=== PATIENT | female | born 1985 | race Caucasian/White ===

== ENCOUNTER 2019-03-24 13:30 | Inpatient (IN) | payer MEDICAID, OTHER ==
[~2019-03-24] VITALS: Ht 157.5 cm; Wt 77.9 kg
[2019-03-24] MEDS ORDERED: ONDANSETRON 4 MG INJ IV STA ×3 (14:06→18:36)
[2019-03-24] MEDS ORDERED: SOD CHLORIDE 0.9% 500 ML IV STA (14:06)
[2019-03-24] MEDS ORDERED: morphine 2 MG INJ IV STA ×2 (14:06→15:40)
--- NOTE | 2019-03-24 14:22 | ERD ---
ER Documentation Chief Complaint Chief Complaint abdominal pain, vomitting started today HPI This is a 33-year-old female with a nonsignificant past medical history presents ED with complaints of left lower quadrant abdominal pain that started around 8 AM this morning. Patient describes pain as a twisting sensation and rates it at a 10 out of 10 pain. Patient states the pain radiates to the left low back. Patient admits to nausea vomiting and diarrhea. Admits to decreased appetite. Admits to having similar pain in the past and was worked up in another ER and was told that there was nothing wrong. Denies fevers, chills, chest pain, shortness breath, trouble breathing, dysuria, hematuria. Last menstrual period was 02-26-19. Patient is G0, P0. Did not eat anything today. ROS All systems reviewed and are negative except as per history of present illness. Medications Home Meds No Active Prescriptions or Reported Meds Allergies Allergies: Coded Allergies: No Known Allergy (Unverified , 03/24/19) PMhx/Soc Medical and Surgical Hx: pt denies Medical Hx, pt denies Surgical Hx Hx Alcohol Use: No Hx Substance Use: No Hx Tobacco Use: No Smoking Status: Never smoker FmHx Family History: No diabetes Physical Exam Vitals Vital Signs Date Temp Pulse Resp B/P (MAP) Pulse Ox O2 O2 Flow FiO2 Time Delivery Rate 03/24/19 100.3 70 18 162/73 100 Room Air 15:56 (102) 03/24/19 98.3 74 20 141/90 100 13:35 (107) Physical Exam Physical Exam Vitals signs: Reviewed by me. General: Well developed, well nourished, in no acute distress. Patient is awake and alert. Head: Normocephalic, atraumatic. Eyes: Normal conjunctiva, Pupils PERRLA, EOM intact grossly ENT: Pharynx is clear, Moist mucous membranes, external ears, nose and mouth normal Neck: Supple, no masses, lymphadenopathy or JVD Respiratory: Clear to auscultation bilaterally with no wheezing, rhonchi, rales, no distress Cardiovascular: RRR, no murmurs, rubs, or gallops Abdominal: Soft, nondistended, no peritoneal signs, no rigidity, no surgical ab domen, bowel sounds present all 4 quadrants, mild tenderness palpation in the left lower quadrant and suprapubic region, nontender to palpation in all other areas, McBurney's point nontender, Dougherty sign negative MSK: No edema Back: No midline tenderness. No flank tenderness Neurologic: Alert and oriented, moving all extremities, normal speech, no focal weakness, no cerebellar signs. Normal mentation Skin: warm and dry, No rash Psych: Normal mood Result Diagram: 03/24/19 1430 03/24/19 1429 Results 24 hrs Laboratory Tests Test 03/24/19 14:24 03/24/19 14:29 03/24/19 14:30 03/24/19 14:32 Urine Color YELLOW Urine Clarity CLEAR Urine pH 5.0 Urine Specific 1.031 [place] Urine Ketones 2+ mg/dL Urine Nitrite NEGATIVE mg/dL Urine Bilirubin NEGATIVE mg/dL Urine NEGATIVE mg/dL Urobilinogen Urine Leukocyte NEGATIVE Hank/ul Esterase Urine Microscopic 5 /HPF RBC Urine Microscopic 4 /HPF WBC Urine Bacteria FEW /HPF Urine Hemoglobin 1+ mg/dL Urine Glucose 3+ mg/dL Urine Total 2+ mg/dl Protein Iron Level 32 ug/dl Total Iron 513 ug/dl Binding Capacity Percent Iron 6 % SAT Saturation Free Thyroxine 0.95 ng/dl Sodium Level 139 mmol/L Potassium Level 4.2 mmol/L Chloride Level 102 mmol/L Carbon Dioxide 19 mmol/L Level Anion Gap 18 Blood Urea 8 mg/dl Nitrogen Creatinine 0.52 mg/dl Est Glomerular > 60 mL/min Filtrat Rate mL/min Glucose Level 320 mg/dl Calcium Level 9.3 mg/dl Total Bilirubin 0.4 mg/dl Direct Bilirubin 0.00 mg/dl Indirect 0.4 mg/dl Bilirubin Aspartate Amino 44 IU/L Transf (AST/SGOT) Alanine 44 IU/L Aminotransferase (ALT/SGPT) Alkaline 100 IU/L Phosphatase Total Protein 8.9 g/dl Albumin 4.9 g/dl Globulin 4.00 g/dl Albumin/Globulin 1.22 Ratio Lipase 108 U/L White Blood Count 11.4 10^3/ul Red Blood Count 5.68 10^6/ul Hemoglobin 9.1 g/dl Hematocrit 34.5 % Mean Corpuscular 60.7 fl Volume Mean Corpuscular 16.0 pg Hemoglobin Mean Corpuscular 26.4 g/dl Hemoglobin Concen t Red Cell 21.5 % Distribution Width Platelet Count 309 10^3/UL Mean Platelet fl Volume Immature 0.300 % Granulocytes % Neutrophils % 92.0 % Lymphocytes % 4.8 % Monocytes % 2.6 % Eosinophils % 0.0 % Basophils % 0.3 % Nucleated Red 0.0 /100WBC Blood Cells % Immature 0.040 10^3/ul Granulocytes # Neutrophils # 10.5 10^3/ul Lymphocytes # 0.6 10^3/ul Monocytes # 0.3 10^3/ul Eosinophils # 0.0 10^3/ul Basophils # 0.0 10^3/ul Nucleated Red 0.0 10^3/ul Blood Cells # Hemoglobin A1c 11.5 % POC Beta HCG, NEGATIVE Qualitative Current Medications Medications Dose Sig/Carmen Start Time Status Last (Trade) Ordered Route PRN Stop Time Admin Dose Reason Admin Sodium 500 ml @ Q1H STAT 03/24/19 DC 03/24/19 Chloride 500 mls/hr IV 14:06 14:27 03/24/19 15:05 Morphine 4 mg ONCE STAT 03/24/19 DC 03/24/19 Sulfate IV 14:06 14:28 (morphine) 03/24/19 14:08 Ondansetron 4 mg ONCE STAT 03/24/19 DC 03/24/19 HCl (Zofran IV 14:06 14:27 Inj) 03/24/19 14:08 Morphine 4 mg ONCE STAT 03/24/19 DC 03/24/19 Sulfate IV 15:40 15:51 (morphine) 03/24/19 15:41 Potassium 1,000 ml @ Q0M IV 03/24/19 DC Chloride/Sodi 0 mls/hr 16:57 um Chloride 03/24/19 18:04 Potassium 1,000 ml @ Q0M IV 03/24/19 DC Chloride/Dext 0 mls/hr 16:57 mary beth/ Sod Cl 03/24/19 18:05 Potassium 1,000 ml @ Q0M IV 03/24/19 DC Chloride/Sodi 0 mls/hr 16:57 um Chloride 03/24/19 18:04 Potassium 1,000 ml @ Q0M IV 03/24/19 DC Chloride/Dext 0 mls/hr 16:57 mary beth/ Sod Cl 03/24/19 18:05 Sodium 1,000 ml @ Q0M IV 03/24/19 Chloride 0 mls/hr 16:57 1,000 ml @ Q0M IV 03/24/19 DC Dextrose/Sodi 0 mls/hr 16:57 um Chloride 03/24/19 18:05 Insulin 101 ml @ ER DKA 03/24/19 DC Human 7.68 mls/hr PROTOCOL IV 17:00 Regular 100 03/24/19 18:07 unit/ Sodium Chloride Lactated 760 ml @ ONCE ONCE 03/24/19 DC 03/24/19 Ringer's 760 mls/hr IV 17:00 18:00 03/24/19 17:59 HYPOGLYCEM 03/24/19 Miscellaneous HYPOGLYCEMIA PROTOCOL PRN 17:00 TREATMENT XX Information .HYPOGLYCEMIA (* PROTOCOL Miscellaneous Pharmacy Order) Dextrose 50 ml Q15M PRN 03/24/19 (D50w IV 17:00 Syringe) .DECREASED GLUCOSE Dextrose 25 ml Q15M PRN 03/24/19 (D50w IV 17:00 Syringe) .DECREASED GLUCOSE IV Flush 3 ml PER 03/24/19 (NS 3 ml) PROTOCOL IV 17:00 Ondansetron 4 mg Q6H PRN 03/24/19 HCl (Zofran IV 17:00 Inj) NAUSEA/VOMITI NG 650 mg Q6H PRN 03/24/19 Acetaminophen PO .PAIN 1-3 17:00 (Tylenol OR TEMP Tab) 1 tab Q6H PRN 03/24/19 Acetaminophen PO .MOD PAIN 17:00 / 4-6 Hydrocodone Bitart ([place] (5/325)) Morphine 2 mg Q4H PRN 03/24/19 Sulfate IV .SEVERE 17:00 (morphine) PAIN 7-10 Docusate 100 mg Q12H PRN 03/24/19 Sodium PO 17:00 (Colace) .CONSTIPATION Magnesium 30 ml DAILY PRN 03/24/19 Hydroxide PO 17:00 (Milk Of Mag) .CONSTIPATION Heparin 5,000 unit Q12 SC 03/24/19 Sodium 21:00 (Porcine) (Heparin (5000 Units/1ml)) Lorazepam 0.5 mg Q6H PRN 03/24/19 (Ativan) IV ANXIETY 17:00 Sodium 1,000 ml @ Q10H IV 03/24/19 Chloride 100 mls/hr 16:57 Albuterol/ 3 ml Q4H RESP 03/24/19 Ipratropium THERAPY PRN 17:00 (Duoneb) HHN SHORTNESS OF BREATH Piperacillin 100 ml @ Q6 IVPB 03/24/19 Sod/ 200 mls/hr 18:00 Tazobactam Sod Hydralazine 10 mg Q6H PRN 03/24/19 HCl IV ELEVATED 17:00 (Apresoline) BLOOD PRESSURE 1 tab Q5M PRN 03/24/19 Nitroglycerin SL ANGINA 17:00 (Nitroglyceri n (Sl Tab) 0.4 Mg) 40 mg DAILY@06 03/25/19 Pantoprazole PO 06:00 (Protonix Tab) Dextrose 50 ml Q15M PRN 03/24/19 (D50w IV For BS 50 17:00 Syringe) or less Dextrose 25 ml Q15M PRN 03/24/19 (D50w IV BS 17:00 Syringe) between 50-70 Diagnostic 1 ea Q1H XX 03/24/19 Test (Pha) 17:00 (Accu-Chek) HYPOGLYCEM 03/24/19 Miscellaneous HYPOGLYCEMIA PROTOCOL PRN 17:00 TREATMENT XX Information Hypoglycemia (* (BS < 70) Miscellaneous Pharmacy Order) Potassium 1,000 ml @ Q0M IV 03/24/19 Chloride/Sodi 0 mls/hr 16:57 um Chloride Potassium 1,000 ml @ Q0M IV 03/24/19 Chloride/Dext 0 mls/hr 16:57 mary beth/ Sod Cl Potassium 1,000 ml @ Q0M IV 03/24/19 Chloride/Sodi 0 mls/hr 16:57 um Chloride Potassium 1,000 ml @ Q0M IV 03/24/19 Chloride/Dext 0 mls/hr 16:57 mary beth/ Sod Cl Sodium 1,000 ml @ Q0M IV 03/24/19 Chloride 0 mls/hr 16:57 1,000 ml @ Q0M IV 03/24/19 Dextrose/Sodi 0 mls/hr 16:57 um Chloride Insulin 101 ml @ DKA 03/24/19 Human 7.68 mls/hr PROTOCOL IV 17:00 Regular 100 unit/ Sodium Chloride Please ONCE ONCE 03/24/19 DC Miscellaneous discontinue XX 17:00 ... 03/24/19 18:08 Information (* Miscellaneous Pharmacy Order) 1 mg ONCE STAT 03/24/19 DC 03/24/19 Hydromorphone IV 17:45 18:02 HCl 03/24/19 17:46 (Dilaudid) Ondansetron 4 mg ONCE STAT 03/24/19 DC 03/24/19 HCl (Zofran IV 17:45 17:58 Inj) 03/24/19 17:46 1 mg ONCE STAT 03/24/19 DC Hydromorphone IV 18:36 HCl 03/24/19 18:37 (Dilaudid) Ondansetron 4 mg ONCE STAT 03/24/19 DC HCl (Zofran IV 18:36 Inj) 03/24/19 18:37 Procedures/MDM imaging: [place] [address] Radiology Main Line: [phone] DIAGNOSTIC IMAGING REPORT Patient: SAVITA PRASAD : 1985 Age: 33 Sex: F MR #: [id number] DOS: 03/24/19 1406 Ordering MD: SAÚL SINHA PA-C Location: [facility] Room/Bed: PROCEDURE: CT Abdomen and Pelvis without contrast CLINICAL INDICATION: Left lower quadrant abdominal pain TECHNIQUE: Transaxial images were obtained through the abdomen and pelvis on a multi-slice scanner without the intravenous contrast administration. No oral contrast had previously been given. Sagittal and coronal re-formations were subsequently reconstructed. One or more of the following dose reduction techniques were used: - Automated exposure control. - Adjustment of the mA and/or kV according to patient size. - Use of iterative reconstruction technique. DICOM images are available. Radiation dose: CTDIvol = 10.80 mGy; DLP = 642.51 mGy-cm. COMPARISON: No prior studies are available for comparison. FINDINGS: Lung bases: A 1 mm calcified granuloma is seen in the left lower lobe. Liver: The liver is enlarged with the sagittal diameter of the right lobe measuring 19.0 cm. No focal lesion is evident. Gallbladder: The wall is not thickened. No radiopaque stones are identified. Bile ducts: The intra and extrahepatic bile ducts are normal in caliber. Pancreas: Appears normal with no mass or inflammation evident. Spleen: Normal in size with no focal lesion. Adrenals: A 1.3 cm left adrenal nodule is evident that measures 28 HU. The right adrenal gland appears normal. Kidneys, ureters and bladder: The kidneys are normal in size and there is no mass, pathological calcification, or hydronephrosis evident. There is no perinephric stranding. The ureters are normal in caliber and no ureteroliths are identified. The bladder appears unremarkable. Reproductive organs: The uterus is anteverted and deviates minimally to the right of midline. There is a complex largely cystic lesion seen in the right pelvic region measuring 11.2 x 7.3 x 7.0 cm containing multiple septations. There is no significant inflammatory change in the adjacent fat. Stomach and bowel: The stomach appears unremarkable. There is a moderate stool burden within the cecum and ascending colon without evidence of bowel obstruction or inflammation. Appendix: The proximal vermiform appendix appears unremarkable while distally, the vermiform appendix appears to be coming imbedded within the complex largely cystic right pelvic mass. Peritoneum: There is no significant amount of free intraperitoneal fluid and no free air is identified. A few shoddy retroperitoneal nodes are evident up to 9 mm in short diameter. Aorta: Normal in caliber with no aneurysmal dilatation. IVC: Unremarkable. Lymph nodes: Shoddy retroperitoneal nodes are evident with the largest measuring 9 mm in short diameter. An 8 mm in short diameter left inguinal node is evident. Osseous structures: A lobulated lucent lesion with an abrupt zone of transition is seen within the left superior medial acetabulum measuring 3.0 x 2.9 x 1.0 cm. Mild degenerative enthesopathy of the inferior thoracic and lumbar spine is noted. IMPRESSION: 1. Within the right intraperitoneal pelvis, partially enveloping the uterus and crossing the midline to the left posterior to the uterus is a complex largely cystic mass measuring 11.2 x 7.3 x 7.0 cm and containing multiple septations. There is no significant inflammatory change in the adjacent fat. The distal vermiform appendix appears to be enveloped within this structure. Differential possibilities include a cystic ovarian neoplasm, pseudomyxoma peritonei related to appendiceal pathology, cystic lymphangioma, and tubal ovarian abscess is less likely due to lack of obvious inflammation. Correlation with pelvic sonography may add useful information. 2. There is no evidence of bowel obstruction or inflammation. 3. There is no free intraperitoneal fluid or free intraperitoneal air. 4. There are a few shoddy retroperitoneal nodes up to 9 mm in short diameter and an 8 mm in short diameter left inguinal node is evident. 5. 1.3 cm left adrenal nodule which is indeterminate as it measures 28 HU in density. 6. Hepatomegaly with no focal lesion. 7. A 1 mm calcified granuloma is seen in the left lower lobe 8. Nonaggressive lobulated lucency well-marginated with an abrupt zone of transition is seen within the left superior medial acetabulum. This could repres ent a simple unicameral bone cyst, an aneurysmal bone cyst. Findings of multiloculated largely cystic lesion in the intraperitoneal pelvis, shoddy retroperitoneal adenopathy, small left adrenal nodule, and lucent lesion in the left acetabulum were telephoned by Cricket Milligan MD to Darlene Sinha Pa-C on 03/24/2019 at 1600 hours. Physician Leonela Date Time Electronically viewed and signed by Physician Leonela on 03/24/2019 16:06 RH/ CC: SAÚL SINHA PA-C [id number] [place] [address] Radiology Main Line: [phone] DIAGNOSTIC IMAGING REPORT Patient: SAVITA PRASAD : 1985 Age: 33 Sex: F MR #: [id number] DOS: 03/24/19 0000 Ordering MD: SAÚL SINHA PA-C Location: [facility] Room/Bed: PROCEDURE: US Pelvis CLINICAL INDICATION: Pelvic pain. TECHNIQUE: Transabdominal sonographic evaluation of the pelvis was performed. COMPARISON: CT abdomen and pelvis performed on the same day. FINDINGS: Uterus is anteverted and measures 8.1 x 4.2 x 6 cm. Endometrium measures 8 mm in thickness. No uterine masses are seen. There is a complex multicyst right adnexal mass measuring approximately 9 x 6.4 x 6.5 cm. Normal appearing right ovary was not seen. Left ovary measures 3.9 x 2.9 x 2.4 cm and unremarkable. There is no free pelvic fluid. IMPRESSION: 1. Complex multicystic right adnexal mass without visible normal appearing right ovary. Finding could be of ovarian origin. Recommend further evaluation with contrast enhanced pelvic MRI. 2. Unremarkable uterus and left ovary. 3. No free pelvic fluid. RPTAT:AAEE Physician Yadira Date Time Electronically viewed and signed by Physician Yadira on 03/24/2019 16:29 RM/ CC: SAÚL SINHA PA-C [id number] LAB INTERPRETATION: CBC remarkable for an elevated white count of 11.4, hemoglobin 9.1, hematocrit 34.5, elevated neutrophil percentage 92.0 Chemistry remarkable for a glucose 320, anion gap elevated 18, carbon dioxide 19 Liver function test shows no evidence of acute biliary or hepatic dysfunction Lipase shows no evidence of acute pancreatitis Urinalysis remarkable for positive ketones, glucose and urine, A1C 11.5 ER COURSE: The patient was given IV normal saline, Zofran, morphine The medication was well tolerated and the patient reports improvement in symptoms. The patient was stable throughout ED course. I kept the patient and/or family informed of laboratory and diagnostic imaging results throughout the emergency room course. The patient was promptly evaluated and a treatment plan was devised based on H&P and other data. This plan was discussed with the patient who agreed and had no further questions or concerns prior to discharge. MEDICAL DECISION MAKING: This is a 33-year-old female presents ED with left lower quadrant abdominal pain that started around 8 AM this morning. Blood work is remarkable for an elevated glucose of 320, anion gap elevated and dioxide decreased. Patient has no history of diabetes. This is likely diabetic ketoacidosis. Patient also does have an elevated white count. CT the abdomen and pelvis shows a large cystic mass which could be cystic ovarian neoplasm, pseudomyxoma or appendiceal pathology. US shows Complex multicystic right adnexal mass without visible normal appearing right ovary. Finding could be of ovarian origin. Recommend further evaluation with contrast enhanced pelvic MRI. Discussed case with my overseeing physician Dr. Cain who agrees with plan of admitting patient to hospital. Dr. Cain will be facilitating admission of patient into hospital. Disclaimer: Inadvertent spelling and grammatical errors are likely due to E HR/dictation software use and do not reflect on the overall quality of patient care. Also, please note that the electronic time recorded on this note does not necessarily reflect the actual time of the patient encounter. Please note that this patient had initially been seen and evaluated by the brannon vergara assistant activities director. I went to the bedside to perform a focused physical exam. The patient was in a significant amount of abdominal discomfort. My physical exam did not show any evidence of peritoneal signs but the patient did have significant tenderness more prominent in the right lower quadrant. I indicated to both the patient and her family who is at bedside that there was a large complex right adnexal mass. I reviewed this on the radiographic imaging be both the CT of the pelvis. It was measuring 11.2 x 7.3 x 7.0 cm. I consulted the CONTRACT ADMIN and they will be evaluated on the case. I have also ordered a pelvic MRI for further evaluation into the complex mass. The patient required IV Dilaudid. The patient has no history of diabetes. The patient's blood glucose was elevated at 320 with an anion gap and a low bicarb. The patient stated she had not consumed any oral intake for over 24 hours. Therefore this was concerning for new onset diabetic ketoacidosis as I obtained a hemoglobin A1c which was elevated at 11.5. DKA protocol was started. The patient will be admitted to the hospitalist Dr. Garcia. The patient will be going to the intensive care unit in serious condition with an anticipated stay of greater than 2 midnights. Critical Care: Time: 45 minutes Treatments/Evaluations: Close monitoring and treatment of unstable vital signs, cardiorespiratory, and neurologic status, while maintaining tight balance of fluid, respiratory, and cardiac interventions. Time does not include performing any of the above billable procedures. Departure Diagnosis: Primary Impression: DKA (diabetic ketoacidoses) Diabetes mellitus type: other specified (including DEX) Diabetes mellitus complication detail: without coma Qualified Codes: E13.10 - Other specified diabetes mellitus with ketoacidosis without coma Additional Impressions: Leukocytosis Leukocytosis type: unspecified Qualified Codes: D72.829 - Elevated white blood cell count, unspecified Anemia Anemia type: unspecified type Qualified Codes: D64.9 - Anemia, unspecified Abdominal pain Abdominal location: lower abdomen, unspecified Qualified Codes: R10.30 - Lower abdominal pain, unspecified Nausea vomiting and diarrhea Pelvic mass Condition: Serious FOSTER, SAÚL PA-C Mar 24, 2019 14:22 JUAN JOSE PRASAD MD Mar 24, 2019 18:43
[2019-03-24] MEDS ORDERED: DEXTROSE 10%/0.45% NACL 1,000 ML IV SCH ×2 (16:57)
[2019-03-24] MEDS ORDERED: SOD CHLORIDE 0.9% 1,000 ML IV SCH ×3 (16:57)
[2019-03-24] MEDS ORDERED: D10/0.45% NACL + KCL 40 MEQ 1,000 ML IV SCH ×2 (16:57)
[2019-03-24] MEDS ORDERED: D10/0.45% NACL + KCL 30 MEQ 1,000 ML IV SCH ×2 (16:57)
[2019-03-24] MEDS ORDERED: NS + KCL 40 MEQ 1,000 ML IV SCH ×2 (16:57)
[2019-03-24] MEDS ORDERED: NS + KCL 30 MEQ 1,000 ML IV SCH ×2 (16:57)
[2019-03-24] MEDS ORDERED: NACL 0.9% 3 ML SYG IV SCH (17:00)
[2019-03-24] MEDS ORDERED: ONDANSETRON 4 MG INJ IV PRN (17:00)
[2019-03-24] MEDS ORDERED: hydrALAzine 20 MG INJ IV PRN (17:00)
[2019-03-24] MEDS ORDERED: MAGNESIUM HYDROXIDE 30ML CUP PO PRN (17:00)
[2019-03-24] MEDS ORDERED: NITROGLYCERIN (SL) 0.4 MG TAB SL PRN (17:00)
[2019-03-24] MEDS ORDERED: DEXTROSE 50% 50 ML SYRINGE IV PRN ×4 (17:00)
[2019-03-24] MEDS ORDERED: DOCUSATE SODIUM 100 MG CAP PO PRN (17:00)
[2019-03-24] MEDS ORDERED: LACTATED RINGER'S 760 ML IV ONE (17:00)
[2019-03-24] MEDS ORDERED: HYDROCODONE/APAP (5/325) TAB PO PRN (17:00)
[2019-03-24] MEDS ORDERED: morphine 2 MG INJ IV PRN (17:00)
[2019-03-24] MEDS ORDERED: INSULIN REGULAR, HUMAN 100 UNIT in SOD CHLORIDE 0.9% 100 ML IV SCH ×4 (17:00)
[2019-03-24] MEDS ORDERED: LORAZEPAM 2 MG INJ IV PRN (17:00)
[2019-03-24] MEDS ORDERED: ALBUTEROL/IPRATROPIUM (NEB) 3 ML AMP HHN PRN (17:00)
[2019-03-24] MEDS: ACCU-CHEK XX SCH ×4 (17:45→23:42)
[2019-03-24] MEDS ORDERED: HYDROmorphONE 1 MG/ML SYG IV STA ×2 (17:45→18:36)
[2019-03-24] MEDS: PIPER-TAZO 3.375 GM IV (PMX) 100 ML IVPB SCH (19:03)
--- NOTE | 2019-03-24 21:10 | HP ---
DATE OF ADMISSION: 03/24/2019 IDENTIFICATION: This is a 33-year-old female. CHIEF COMPLAINT: Abdominal pain and vomiting. HISTORY OF PRESENT ILLNESS: A 33-year-old female with apparently no significant past medical history who started having left lower quadrant pain. She said the symptoms began early this morning. She d escribed a 10/10 pain, sort of a twisting sensation. Apparently, she has never had this pain before. The pain apparently radiated to her lower back. She also had some nausea and vomiting symptoms, no nbilious, nonbloody, and some mild loose stools. She denied any chest pain, shortness of breath, no fevers or chills. No dysuria. When she came in today, she was found with elevated blood sugars in t he 300 range and her anion gap was slightly elevated with signs of mild DKA and she is presently on D KA protocol, getting IV fluids and waiting for IV insulin. However, she also had a CT scan of abdome n and pelvis performed today in the ER that showed the right intraperitoneal pelvis partially indelvi ng the uterus, and crossing the midline to the left posterior to the uterus is a complex large cystic mass measuring 11 x 7 x 7 cm containing multiple septations, cannot rule out cystic ovarian neoplasm versus a pseudomyxoma peritonei versus cystic lymphangioma tubo-ovarian abscess, less likely due to lack of information. There was a pelvic ultrasound performed that showed complex multicystic right a dnexal mass without visible normal-appearing right ovary. A call has been made out for the [employer] do ctor to come evaluate the patient. The patient denies any prior history of any diabetes. Per record s, her last menstrual period was 02/26/2019. The patient stated that she took 2 Tylenol and ibuprofe n at home which provided. The patient stated that she took 2 Tylenol and ibuprofen at home, which pr ovided only minimal relief from symptoms. She also has received some opioid medication in the ER tod ay, which helped relieved her symptoms. PAST MEDICAL HISTORY: As stated above. ALLERGIES: NO KNOWN DRUG ALLERGIES. HOME MEDICATIONS: None. PAST SURGICAL HISTORY: None. SOCIAL HISTORY: Negative for smoking or drinking or IV drug abuse. FAMILY HISTORY: Mother has hypertension. PHYSICAL EXAMINATION: VITAL SIGNS: T-max 100.3, pulse 70 to 74, respirations 18, blood pressure 141 to 162 systolic over 9 0 to 70 diastolic. Satting 100% on room air. GENERAL: The patient is lying in bed, answering questions appropriately. Family at the bedside. HEENT: Pupils equal, round, and reactive to light. Extraocular muscles intact. NECK: Supple, no thyromegaly. LUNGS: Clear to auscultation bilaterally. CARDIOVASCULAR: S1, S2 heard. No rubs or gallops. ABDOMEN: Mild tenderness to palpation, left lower quadrant area. Otherwise, no rebound or guarding. MUSCULOSKELETAL: No lower extremity edema bilaterally. NEUROLOGIC: No focal deficits. LABORATORY DATA: WBC 11.4, hemoglobin 9.1, hematocrit 34.5, platelets of 309. Again, the basic meta bolic panel is normal except CO2 is a little low at 19, anion gap is 18, and the glucose is 320. LFT s are normal. Beta hCG test is negative. UA shows 2+ ketones, negative nitrites, negative leukocyte esterase. DIAGNOSTIC DATA: We mentioned the CT scan of the abdomen and pelvis findings and the pelvic ultrasou nd findings. Chest x-ray showed no focal consolidations. ASSESSMENT AND PLAN: A 33-year-old female coming in with lower abdominal pain as well as signs of di abetic ketoacidosis. 1. Elevated blood sugars. Again, she has signs of diabetic ketoacidosis. Her A1c came back at 11.5 . Again, she has no known prior history of diabetes. So, admit the patient to ICU, put her on DKA p rotocol including aggressive IV fluid hydration, IV insulin, replete electrolytes as needed. Check T SH, A1c, and lipid panel. Consider asthma educator consult and/or endocrinology consult. 2. Abdominal pain. Again, given the findings of the CT scan of abdomen and pelvis, we will order a pelvic MRI to further assess this large cystic mass at 11 x 7 x 7 cm with multiple septations. Follo w up recommendations from [employer] team. Continue IV fluids and pain control medications as well. 3. Gastrointestinal prophylaxis with PPI. 4. Deep venous thrombosis prophylaxis, heparin subcutaneously. Dictated By: JOE SINGH Conf#: [id number] DID#: [id number]
[2019-03-24 23:02] VITALS: BP 131/64; PULSE 73; PULSE 86; RESP 16
[2019-03-24] MEDS: HEPARIN 5,000 UNIT/1 ML VIAL SC SCH (23:42)
[2019-03-25] VITALS (28 sets, daily range): BP systolic 92–199; BP diastolic 52–168; PULSE 68–97; RESP 10–22; Ht 157.5 cm; Wt 77.9 kg
[2019-03-25] MEDS: ACCU-CHEK XX SCH ×10 (01:00→09:00)
[2019-03-25] MEDS: PIPER-TAZO 3.375 GM IV (PMX) 100 ML IVPB SCH ×5 (01:27→23:27)
[2019-03-25] MEDS ORDERED: INSULIN GLARGINE [LANTus] (100 UNITS/ML) SYG SC ONE ×2 (04:00→11:00)
--- NOTE | 2019-03-25 04:41 | CONS ---
Assessment/Plan Assessment/Plan Hospital Course (Demo Recall) lower abdominal pain Complex adnexal mass concerning for ovarian torsion Problems: (1) DKA (diabetic ketoacidoses) Status: Acute Qualifiers: Qualified Codes: E13.10 - Other specified diabetes mellitus with ketoacidosis without coma (2) Pelvic mass Status: Acute (3) Abdominal pain Status: Acute Qualifiers: Qualified Codes: R10.30 - Lower abdominal pain, unspecified (4) Nausea vomiting and diarrhea Status: Acute Assessment/Plan (Daily) Discussed with the patient regarding urgent surgery. Discussed regarding diagnostic laparoscopy possible laparoscopic unilateral ovarian cystectomy possible unilateral salpingo-oophorectomy, possible biopsy and possible any indicated procedure possible open possible blood transfusion. I discussed to the patient due to concern for ovarian torsion and abdominal pain the surgery is being done however the pathology of the cyst is unclear. I discussed that the final pathology will be available after the procedure. And depends on final pathology she may need additional procedures or surgeries in case of any abnormality in the final pathology. Patient asked to blood transfusion in case of emergency. Risk and benefit of procedure including risk of infection, bleeding, damage to surrounding structures including bowel and bladder and risk of anesthesia, risk of blood transfusion including but not limited to blood borne infection including HIV, hepatitis B and C and transfusion reaction discussed with patient in detail informed consent was obtained Patient understands that there is surgery may involve losing one ovary or tube. She does not desire any fertility. She understands possibility of conversion to the procedure to open. She was consented for diagnostic laparoscopy possible laparoscopic unilateral cystectomy possible unilateral salpingo-oophorectomy possible open possible blood transfusion possible biopsy and any indicated procedure. All questions were answered to patient's best satisfaction. Patient verbalized understanding OR team was notified Management of diabetes by primary team and anesthesia Per hospitalist diabetes ketoacidosis currently improved. . Consultation Date/Type/Reason Admit Date/Time Mar 24, 2019 at 17:13 Date of Consultation: Mar 25, 2019 Type of Consult COOLER TENDER consultation Reason for Consultation Concern for possible ovarian torsion Requesting Provider: Gayla Date/Time of Note DATE: 03/25/19 TIME: 04:27 Hx of Present Illness I was consulted for COOLER TENDER evaluation for this patient that had been currently admitted to ICU for lower abdominal pain and she was initially noted to have DKA. Patient apparently complained of abdominal pain and had a pelvic ultrasound and MRI that was concerning for possible ovarian torsion. Attended to the patient bedside. Patient currently appears comfortable. Reports her symptoms are started yesterday with nausea bloody diarrhea as well as lower abdominal pain that has been worsened. She presented to the hospital and was noted to be in DKA. Patient denies any known history of diabetes in the past. She states that she was diagnosed with prediabetes and was on metformin for short period of time about 3 months and since she stopped.\Patient is nulliparous. 0 para 0 She does not desire future fertility. Reports cycles lately has been more regular and occasionally have oligomenorrhea. Reports history of irregular cycles in the past and was placed on Depo-Provera shots at age 14 but then subsequently her cycles have been regular. She has currently received pain medication. Pelvic ultrasound showed a large complex right adnexal complex mass concerning for possible ovarian torsion. Constitutional: no complaints, improved Eyes: No no complaints, No pain, No discharge, No redness, No visual change, No other ENT: No no complaints, No bleeding, No pain, No congestion, No discharge, No dysphagia, No sore throat, No other Respiratory: No no complaints, No pain, No cough, No pleuritic pain, No shortness of breath, No sputum, No wheezing, No other Cardiovascular: No no complaints, No chest pain, No edema, No lightheadedness, No orthopenea, No palpitations, No paroxysmal nocturnal dyspnea, No other Gastrointestinal: pain, diarrhea Genitourinary: No no complaints, No bleeding, No dysuria, No discharge, No flank pain, No hematuria, No other Musculoskeletal: No no complaints, No back pain, No bone/joint pain, No neck pain, No restricted range of motion, No swelling, No other Skin: No no complaints, No bruising, No erythema, No laceration, No pruritis, No rash, No skin lesions, No other Neurologic: No no complaints, No confusion, No dizziness, No focal-weakness, No headache, No syncope, No seizure, No other Endocrine: No no complaints, No polyuria, No polydypsia, No dry skin, No temp intolerance, No other Lymphatic: No no complaints, No adenopathy, No tender nodes, No lymphadema, No other Psychological: No no complaints, No nl mood/affect, No anxiety, No confusion, No depression, No suicidal, No other Immunologic: No no complaints, No immunodeficiency, No pruritis, No rhinitis, No urticaria, No other Past Medical History Patient denies any medical problems in the past except prediabetes Home Meds No Active Prescriptions or Reported Meds Medications Current Medications Sodium Chloride 1,000 ml @ 0 mls/hr Q0M IV ; Start 03/24/19 at 16:57 Miscellaneous Information (* Miscellaneous Pharmacy Order) HYPOGLYCEMIA TREATMENT HYPOGLYCEM PROTOCOL PRN XX .HYPOGLYCEMIA PROTOCOL; Start 03/24/19 at 17:00 Dextrose (D50w Syringe) 50 ml Q15M PRN IV .DECREASED GLUCOSE; Start 03/24/19 at 17:00 Dextrose (D50w Syringe) 25 ml Q15M PRN IV .DECREASED GLUCOSE; Start 03/24/19 at 17:00 IV Flush (NS 3 ml) 3 ml PER PROTOCOL IV ; Start 03/24/19 at 17:00 Ondansetron HCl (Zofran Inj) 4 mg Q6H PRN IV NAUSEA/VOMITING Last administered on 03/25/19at 00:38; Admin Dose 4 MG; Start 03/24/19 at 17:00 Acetaminophen (Tylenol Tab) 650 mg Q6H PRN PO .PAIN 1-3 OR TEMP; Start 03/24/19 at 17:00 Acetaminophen/ Hydrocodone Bitart (Artesian (5/325)) 1 tab Q6H PRN PO .MOD PAIN 4-6; Start 03/24/19 at 17:00 Morphine Sulfate (morphine) 2 mg Q4H PRN IV .SEVERE PAIN 7-10 Last administered on 03/25/19at 00:38; Admin Dose 2 MG; Start 03/24/19 at 17:00 Docusate Sodium (Colace) 100 mg Q12H PRN PO .CONSTIPATION; Start 03/24/19 at 17:00 Magnesium Hydroxide (Milk Of Mag) 30 ml DAILY PRN PO .CONSTIPATION; Start 03/24/19 at 17:00 Heparin Sodium (Porcine) (Heparin (5000 Units/1ml)) 5,000 unit Q12 SC ; Start 03/24/19 at 21:00 Lorazepam (Ativan) 0.5 mg Q6H PRN IV ANXIETY; Start 03/24/19 at 17:00 Albuterol/ Ipratropium (Duoneb) 3 ml Q4H RESP THERAPY PRN HHN SHORTNESS OF BREATH; Start 03/24/19 at 17:00 Piperacillin Sod/ Tazobactam Sod 100 ml @ 200 mls/hr Q6 IVPB Last administered on 03/25/19at 01:27; Admin Dose 200 MLS/HR; Start 03/24/19 at 18:00 Hydralazine HCl (Apresoline) 10 mg Q6H PRN IV ELEVATED BLOOD PRESSURE; Start 03/24/19 at 17:00 Nitroglycerin (Nitroglycerin (Sl Tab) 0.4 Mg) 1 tab Q5M PRN SL ANGINA; Start 03/24/19 at 17:00 Pantoprazole (Protonix Tab) 40 mg DAILY@06 PO ; Start 03/25/19 at 06:00 Dextrose (D50w Syringe) 50 ml Q15M PRN IV For BS 50 or less; Start 03/24/19 at 17:00 Dextrose (D50w Syringe) 25 ml Q15M PRN IV BS between 50-70; Start 03/24/19 at 17:00 Diagnostic Test (Pha) (Accu-Chek) 1 ea Q1H XX Last administered on 03/24/19at 23:42; Admin Dose 1 EA; Start 03/24/19 at 17:00 Miscellaneous Information (* Miscellaneous Pharmacy Order) HYPOGLYCEMIA TREATMENT HYPOGLYCEM PROTOCOL PRN XX Hypoglycemia (BS < 70); Start 03/24/19 at 17:00 Potassium Chloride/Sodium Chloride 1,000 ml @ 0 mls/hr Q0M IV ; Start 03/24/19 at 16:57 Potassium Chloride/Dextrose/ Sod Cl 1,000 ml @ 0 mls/hr Q0M IV ; Start 03/24/19 at 16:57 Potassium Chloride/Sodium Chloride 1,000 ml @ 0 mls/hr Q0M IV Last administered on 03/24/19at 21:29; Admin Dose 100 MLS/HR; Start 03/24/19 at 16:57 Potassium Chloride/Dextrose/ Sod Cl 1,000 ml @ 0 mls/hr Q0M IV Last administered on 03/24/19at 21:32; Admin Dose 150 MLS/HR; Start 03/24/19 at 16:57 Sodium Chloride 1,000 ml @ 0 mls/hr Q0M IV ; Start 03/24/19 at 16:57 Dextrose/Sodium Chloride 1,000 ml @ 0 mls/hr Q0M IV ; Start 03/24/19 at 16:57 Insulin Human Regular 100 unit/ Sodium Chloride 101 ml @ 7.68 mls/hr DKA PROTOCOL IV Last administered on 03/24/19at 21:48; Admin Dose 7.68 MLS/HR; Start 03/24/19 at 17:00 Lactated Ringer's 1,000 ml @ 125 mls/hr Q8H IV ; Start 03/25/19 at 03:52 Allergies: Coded Allergies: No Known Allergy (Unverified , 03/24/19) Past Surgical History Past Surgical Hx: no surgical history Family History Significant Family History: hypertension, other (Reports history of hypertension in her family) Social History Alcohol Use: none Smoking Status: Never smoker Drug Use: none Other Social History Recent denies of smoking, drinking alcohol or using any drugs Exam/Review of Systems Exam Vitals Vital Signs Date Temp Pulse Resp B/P (MAP) Pulse Ox O2 O2 Flow FiO2 Time Delivery Rate 03/25/19 76 15 114/71 100 Room Air 03:00 (85) 03/25/19 98.7 00:00 Intake and Output 03/24/19 03/24/19 03/25/19 1515:00 23:00 07:00 IntakeIntake Total 500 ml BalanceBalance 500 ml Constitutional: alert, oriented, well developed Psych: no complaints, nl mood/affect Head: normocephalic Eyes: nl conjunctiva, EOMI, nl lids ENMT: nl external ears & nose, nl lips & teeth Neck: supple, non-tender Respiratory: clear to auscultation, normal air movement Cardiovascular: regular rate and rhythm, nl pulses Gastrointestinal: soft, nl liver, spleen, other (There is mild to moderate tenderness and palpation of the lower abdomen noted. There is a mass palpable and abdomen up to 3 cm below the umbilicus more toward the left side. No guarding no rigidity) Musculoskeletal: nl extremities to inspection, nl gait and stance Extremities: normal pulses Neurological: [employer] II-XII intact, nl speech, nl strength Skin: nl turgor Lymph: nl lymph nodes Results Result Diagram: 03/24/19 1430 03/25/19 0054 Results 24hrs Laboratory Tests Test 03/24/19 14:24 03/24/19 14:29 03/24/19 14:30 03/24/19 14:32 Urine Color YELLOW Urine Clarity CLEAR Urine pH 5.0 Urine Specific 1.031 H Warren Urine Ketones 2+ H Urine Nitrite NEGATIVE Urine Bilirubin NEGATIVE Urine NEGATIVE Urobilinogen Urine Leukocyte NEGATIVE Esterase Urine 5 Microscopic RBC Urine 4 Microscopic WBC Urine Bacteria FEW A Urine Hemoglobin 1+ H Urine Glucose 3+ H Urine Total 2+ H Protein Iron Level 32 L Total Iron 513 H Binding Capacity Percent Iron 6 L Saturation Free Thyroxine 0.95 Sodium Level 139 Potassium Level 4.2 Chloride Level 102 Carbon Dioxide 19 L Level Anion Gap 18 H Blood Urea 8 Nitrogen Creatinine 0.52 Est Glomerular > 60 Filtrat Rate mL/min Glucose Level 320 H Calcium Level 9.3 Total Bilirubin 0.4 Direct Bilirubin 0.00 Indirect 0.4 Bilirubin Aspartate Amino 44 Transf (AST/SGOT ) Alanine 44 Aminotransferase (ALT/SGPT) Alkaline 100 Phosphatase Total Protein 8.9 H Albumin 4.9 Globulin 4.00 H Albumin/Globulin 1.22 Ratio Lipase 108 White Blood 11.4 H Count Red Blood Count 5.68 H Hemoglobin 9.1 L Hematocrit 34.5 L Mean Corpuscular 60.7 L Volume Mean Corpuscular 16.0 L Hemoglobin Mean Corpuscular 26.4 L Hemoglobin Jelena nt Red Cell 21.5 H Distribution Width Platelet Count 309 Mean Platelet Volume Immature 0.300 Granulocytes % Neutrophils % 92.0 H Lymphocytes % 4.8 L Monocytes % 2.6 Eosinophils % 0.0 Basophils % 0.3 Nucleated Red 0.0 Blood Cells % Immature 0.040 H Granulocytes # Neutrophils # 10.5 H Lymphocytes # 0.6 L Monocytes # 0.3 Eosinophils # 0.0 Basophils # 0.0 Nucleated Red 0.0 Blood Cells # Hemoglobin A1c 11.5 H POC Beta HCG, NEGATIVE Qualitative Test 03/24/19 18:57 03/24/19 19:00 03/24/19 19:13 03/24/19 20:28 Blood Gas Blood venous Specimen Source Arterial Blood 03/24/2019 7:20: Date Drawn 43 PM Arterial Blood VENOUS LINE Gas Puncture Site Marcel Test N/A Venous Blood pH 7.341 Venous Blood 35.1 pCO2 (Temp Corrected) Venous Blood pO2 41.4 H (Temp Corrected) Venous Blood 18.6 L HCO3 Venous Blood 71.6 Oxygen Saturation Venous Blood -6.5 L Base Excess Venous Blood 9.5 Total Hemoglobin Venous Blood 71.0 Oxyhemoglobin Venous Blood 0.4 Methemoglobin Carboxyhemoglobi 0.4 n Blood Gas 37.0 Temperature Blood Gas ROOM AIR Modality FiO2 21.0 Blood Gas AA Notified Whom Blood Gas 03/24/2019 7:26: Notified Time 37 PM Sodium Level 135 Potassium Level 4.0 Chloride Level 103 Carbon Dioxide 17 L Level Anion Gap 15 H Blood Urea 7 Nitrogen Creatinine 0.42 L Est Glomerular > 60 Filtrat Rate mL/min Glucose Level 273 H Calcium Level 8.8 Phosphorus Level 2.9 Magnesium Level 1.6 L Bedside Glucose 280 H 283 H Test 03/24/19 21:26 03/24/19 21:34 03/24/19 23:11 03/25/19 00:10 Bedside Glucose 238 H 282 H 267 H Sodium Level 135 Potassium Level 3.8 Chloride Level 102 Carbon Dioxide 20 L Level Anion Gap 13 Blood Urea 6 L Nitrogen Creatinine 0.52 Est Glomerular > 60 Filtrat Rate mL/min Glucose Level 264 H Calcium Level 8.7 Phosphorus Level 3.8 Magnesium Level 1.6 L Test 03/25/19 00:54 03/25/19 00:57 03/25/19 01:10 03/25/19 02:06 Sodium Level 140 Potassium Level 3.8 Chloride Level 107 Carbon Dioxide 19 L Level Anion Gap 14 H Blood Urea 6 L Nitrogen Creatinine 0.51 Est Glomerular > 60 Filtrat Rate mL/min Glucose Level 277 H Calcium Level 8.9 Phosphorus Level 2.3 #L Magnesium Level 1.8 Blood Gas Blood venous Specimen Source Arterial Blood 03/25/2019 1:20: Date Drawn 25 AM Arterial Blood VENOUS LINE Gas Puncture Site Marcel Test N/A Venous Blood pH 7.469 H Venous Blood 24.3 L pCO2 (Temp Corrected) Venous Blood pO2 63.3 H (Temp Corrected) Venous Blood 17.2 L HCO3 Venous Blood 90.4 H Oxygen Saturation Venous Blood -5.3 L Base Excess Venous Blood 9.6 Total Hemoglobin Venous Blood 89.0 Oxyhemoglobin Venous Blood 0.4 Methemoglobin Carboxyhemoglobi 1.2 n Blood Gas 37.0 Temperature Blood Gas Actual 20 Respiration Rate Blood Gas ROOM AIR Modality FiO2 21.0 Blood Gas S.H. Notified Whom Blood Gas 03/25/2019 1:27: Notified Time 33 AM Bedside Glucose 307 H 226 H Test 03/25/19 03:03 03/25/19 03:58 Bedside Glucose 221 H 179 Imaging Imaging PROCEDURE: CT Abdomen and Pelvis without contrast CLINICAL INDICATION: Left lower quadrant abdominal pain TECHNIQUE: Transaxial images were obtained through the abdomen and pelvis on a multi-slice scanner without the intravenous contrast administration. No oral co ntrast had previously been given. Sagittal and coronal re-formations were subsequently reconstructed. One or more of the following dose reduction techniques were used: - Automated exposure control. - Adjustment of the mA and/or kV according to patient size. - Use of iterative reconstruction technique. DICOM images are available. Radiation dose: CTDIvol = 10.80 mGy; DLP = 642.51 mGy-cm. COMPARISON: No prior studies are available for comparison. FINDINGS: Lung bases: A 1 mm calcified granuloma is seen in the left lower lobe. Liver: The liver is enlarged with the sagittal diameter of the right lobe measuring 19.0 cm. No focal lesion is evident. Gallbladder: The wall is not thickened. No radiopaque stones are identified. Bile ducts: The intra and extrahepatic bile ducts are normal in caliber. Pancreas: Appears normal with no mass or inflammation evident. Spleen: Normal in size with no focal lesion. Adrenals: A 1.3 cm left adrenal nodule is evident that measures 28 HU. The right adrenal gland appears normal. Kidneys, ureters and bladder: The kidneys are normal in size and there is no mass, pathological calcification, or hydronephrosis evident. There is no p erinephric stranding. The ureters are normal in caliber and no ureteroliths are identified. The bladder appears unremarkable. Reproductive organs: The uterus is anteverted and deviates minimally to the right of midline. There is a complex largely cystic lesion seen in the right pelvic region measuring 11.2 x 7.3 x 7.0 cm containing multiple septations. There is no significant inflammatory change in the adjacent fat. Stomach and bowel: The stomach appears unremarkable. There is a moderate stool burden within the cecum and ascending colon without evidence of bowel obstruction or inflammation. Appendix: The proximal vermiform appendix appears unremarkable while distally, the vermiform appendix appears to be coming imbedded within the complex largely cystic right pelvic mass. Peritoneum: There is no significant amount of free intraperitoneal fluid and no free air is identified. A few shoddy retroperitoneal nodes are evident up to 9 mm in short diameter. Aorta: Normal in caliber with no aneurysmal dilatation. IVC: Unremarkable. Lymph nodes: Shoddy retroperitoneal nodes are evident with the largest measuring 9 mm in short diameter. An 8 mm in short diameter left inguinal node is evident. Osseous structures: A lobulated lucent lesion with an abrupt zone of transition is seen within the left superior medial acetabulum measuring 3.0 x 2.9 x 1.0 cm. Mild degenerative enthesopathy of the inferior thoracic and lumbar spine is noted. IMPRESSION: 1. Within the right intraperitoneal pelvis, partially enveloping the uterus and crossing the midline to the left posterior to the uterus is a complex largely cystic mass measuring 11.2 x 7.3 x 7.0 cm and containing multiple septations. There is no significant inflammatory change in the adjacent fat. The distal vermiform appendix appears to be enveloped within this structure. Differential possibilities include a cystic ovarian neoplasm, pseudomyxoma peritonei related to appendiceal pathology, cystic lymphangioma, and tubal ovarian abscess is less likely due to lack of obvious inflammation. Correlation with pelvic sonography may add useful information. 2. There is no evidence of bowel obstruction or inflammation. 3. There is no free intraperitoneal fluid or free intraperitoneal air. 4. There are a few shoddy retroperitoneal nodes up to 9 mm in short diameter and an 8 mm in short diameter left inguinal node is evident. 5. 1.3 cm left adrenal nodule which is indeterminate as it measures 28 HU in density. 6. Hepatomegaly with no focal lesion. 7. A 1 mm calcified granuloma is seen in the left lower lobe 8. Nonaggressive lobulated lucency well-marginated with an abrupt zone of transition is seen within the left superior medial acetabulum. This could represent a simple unicameral bone cyst, an aneurysmal bone cyst. Findings of multiloculated largely cystic lesion in the intraperitoneal pelvis, shoddy retroperitoneal adenopathy, small left adrenal nodule, and lucent lesion in the left acetabulum were telephoned by Cricket Milligan MD to Darlene Adorno Pa-C on 03/24/2019 at 1600 hours. Physician Leonela Date Time Electronically viewed and signed by Physician Leonela on 03/24/2019 16:06 RH/ CC: SAÚL ADORNO PA-C [id number] PROCEDURE: US Pelvis CLINICAL INDICATION: Pelvic pain. TECHNIQUE: Transabdominal sonographic evaluation of the pelvis was performed. COMPARISON: CT abdomen and pelvis performed on the same day. FINDINGS: Uterus is anteverted and measures 8.1 x 4.2 x 6 cm. Endometrium measures 8 mm in thickness. No uterine masses are seen. There is a complex multicyst right adnexal mass measuring approximately 9 x 6.4 x 6.5 cm. Normal appearing right ovary was not seen. Left ovary measures 3.9 x 2.9 x 2.4 cm and unremarkable. There is no free pelvic fluid. IMPRESSION: 1. Complex multicystic right adnexal mass without visible normal appearing right ovary. Finding could be of ovarian origin. Recommend further evaluation with contrast enhanced pelvic MRI. 2. Unremarkable uterus and left ovary. 3. No free pelvic fluid. Medications Medication Current Medications Sodium Chloride 1,000 ml @ 0 mls/hr Q0M IV ; Start 03/24/19 at 16:57 Miscellaneous Information (* Miscellaneous Pharmacy Order) HYPOGLYCEMIA TREATMENT HYPOGLYCEM PROTOCOL PRN XX .HYPOGLYCEMIA PROTOCOL; Start 03/24/19 at 17:00 Dextrose (D50w Syringe) 50 ml Q15M PRN IV .DECREASED GLUCOSE; Start 03/24/19 at 17:00 Dextrose (D50w Syringe) 25 ml Q15M PRN IV .DECREASED GLUCOSE; Start 03/24/19 at 17:00 IV Flush (NS 3 ml) 3 ml PER PROTOCOL IV ; Start 03/24/19 at 17:00 Ondansetron HCl (Zofran Inj) 4 mg Q6H PRN IV NAUSEA/VOMITING Last administered on 03/25/19at 00:38; Admin Dose 4 MG; Start 03/24/19 at 17:00 Acetaminophen (Tylenol Tab) 650 mg Q6H PRN PO .PAIN 1-3 OR TEMP; Start 03/24/19 at 17:00 Acetaminophen/ Hydrocodone Bitart (Artesian (5/325)) 1 tab Q6H PRN PO .MOD PAIN 4- 6; Start 03/24/19 at 17:00 Morphine Sulfate (morphine) 2 mg Q4H PRN IV .SEVERE PAIN 7-10 Last administered on 03/25/19at 00:38; Admin Dose 2 MG; Start 03/24/19 at 17:00 Docusate Sodium (Colace) 100 mg Q12H PRN PO .CONSTIPATION; Start 03/24/19 at 17:00 Magnesium Hydroxide (Milk Of Mag) 30 ml DAILY PRN PO .CONSTIPATION; Start 03/24/19 at 17:00 Heparin Sodium (Porcine) (Heparin (5000 Units/1ml)) 5,000 unit Q12 SC ; Start 03/24/19 at 21:00 Lorazepam (Ativan) 0.5 mg Q6H PRN IV ANXIETY; Start 03/24/19 at 17:00 Albuterol/ Ipratropium (Duoneb) 3 ml Q4H RESP THERAPY PRN HHN SHORTNESS OF BREATH; Start 03/24/19 at 17:00 Piperacillin Sod/ Tazobactam Sod 100 ml @ 200 mls/hr Q6 IVPB Last administered on 03/25/19at 01:27; Admin Dose 200 MLS/HR; Start 03/24/19 at 18:00 Hydralazine HCl (Apresoline) 10 mg Q6H PRN IV ELEVATED BLOOD PRESSURE; Start 03/24/19 at 17:00 Nitroglycerin (Nitroglycerin (Sl Tab) 0.4 Mg) 1 tab Q5M PRN SL ANGINA; Start 03/24/19 at 17:00 Pantoprazole (Protonix Tab) 40 mg DAILY@06 PO ; Start 03/25/19 at 06:00 Dextrose (D50w Syringe) 50 ml Q15M PRN IV For BS 50 or less; Start 03/24/19 at 17:00 Dextrose (D50w Syringe) 25 ml Q15M PRN IV BS between 50-70; Start 03/24/19 at 17:00 Diagnostic Test (Pha) (Accu-Chek) 1 ea Q1H XX Last administered on 03/24/19at 23:42; Admin Dose 1 EA; Start 03/24/19 at 17:00 Miscellaneous Information (* Miscellaneous Pharmacy Order) HYPOGLYCEMIA TREATMENT HYPOGLYCEM PROTOCOL PRN XX Hypoglycemia (BS < 70); Start 03/24/19 at 17:00 Potassium Chloride/Sodium Chloride 1,000 ml @ 0 mls/hr Q0M IV ; Start 03/24/19 at 16:57 Potassium Chloride/Dextrose/ Sod Cl 1,000 ml @ 0 mls/hr Q0M IV ; Start 03/24/19 at 16:57 Potassium Chloride/Sodium Chloride 1,000 ml @ 0 mls/hr Q0M IV Last administered on 03/24/19at 21:29; Admin Dose 100 MLS/HR; Start 03/24/19 at 16:57 Potassium Chloride/Dextrose/ Sod Cl 1,000 ml @ 0 mls/hr Q0M IV Last administered on 03/24/19at 21:32; Admin Dose 150 MLS/HR; Start 03/24/19 at 16:57 Sodium Chloride 1,000 ml @ 0 mls/hr Q0M IV ; Start 03/24/19 at 16:57 Dextrose/Sodium Chloride 1,000 ml @ 0 mls/hr Q0M IV ; Start 03/24/19 at 16:57 Insulin Human Regular 100 unit/ Sodium Chloride 101 ml @ 7.68 mls/hr DKA PROTOCOL IV Last administered on 03/24/19at 21:48; Admin Dose 7.68 MLS/HR; Start 03/24/19 at 17:00 Lactated Ringer's 1,000 ml @ 125 mls/hr Q8H IV ; Start 03/25/19 at 03:52 DUKE PUGH MD Mar 25, 2019 04:40
--- NOTE | 2019-03-25 04:51 | PREAC ---
Date/Time of Note Date/Time of Note DATE: 03/25/19 TIME: 04:49 Anesthesia Eval and Record Evaluation Time Pre-Procedure Interview DATE: 03/25/19 TIME: 04:49 Age 33 Sex female NPO: 8 hrs Preoperative diagnosis ovarian tortion Planned procedure exp lap oopharectomy, repair , pos lap Past Medical History Past Medical History: Includes Endo: Other (DKA) GI: Obesity Surgery & Anesthesia Issues No known issue Meds Anticoagulation: No Beta Naldo within 24 hr: No Reason Beta Naldo not given: Pt. not on B-Naldo No Active Prescriptions or Reported Meds Current Medications Sodium Chloride 1,000 ml @ 0 mls/hr Q0M IV ; Start 03/24/19 at 16:57 Miscellaneous Information (* Miscellaneous Pharmacy Order) HYPOGLYCEMIA TREATMENT HYPOGLYCEM PROTOCOL PRN XX .HYPOGLYCEMIA PROTOCOL; Start 03/24/19 at 17:00 Dextrose (D50w Syringe) 50 ml Q15M PRN IV .DECREASED GLUCOSE; Start 03/24/19 at 17:00 Dextrose (D50w Syringe) 25 ml Q15M PRN IV .DECREASED GLUCOSE; Start 03/24/19 at 17:00 IV Flush (NS 3 ml) 3 ml PER PROTOCOL IV ; Start 03/24/19 at 17:00 Ondansetron HCl (Zofran Inj) 4 mg Q6H PRN IV NAUSEA/VOMITING Last administered on 03/25/19at 00:38; Admin Dose 4 MG; Start 03/24/19 at 17:00 Acetaminophen (Tylenol Tab) 650 mg Q6H PRN PO .PAIN 1-3 OR TEMP; Start 03/24/19 at 17:00 Acetaminophen/ Hydrocodone Bitart ([place] (5/325)) 1 tab Q6H PRN PO .MOD PAIN 4- 6; Start 03/24/19 at 17:00 Morphine Sulfate (morphine) 2 mg Q4H PRN IV .SEVERE PAIN 7-10 Last administered on 03/25/19at 00:38; Admin Dose 2 MG; Start 03/24/19 at 17:00 Docusate Sodium (Colace) 100 mg Q12H PRN PO .CONSTIPATION; Start 03/24/19 at 17:00 Magnesium Hydroxide (Milk Of Mag) 30 ml DAILY PRN PO .CONSTIPATION; Start 03/24/19 at 17:00 Heparin Sodium (Porcine) (Heparin (5000 Units/1ml)) 5,000 unit Q12 SC ; Start 03/24/19 at 21:00 Lorazepam (Ativan) 0.5 mg Q6H PRN IV ANXIETY; Start 03/24/19 at 17:00 Albuterol/ Ipratropium (Duoneb) 3 ml Q4H RESP THERAPY PRN HHN SHORTNESS OF BREATH; Start 03/24/19 at 17:00 Piperacillin Sod/ Tazobactam Sod 100 ml @ 200 mls/hr Q6 IVPB Last administered on 03/25/19at 01:27; Admin Dose 200 MLS/HR; Start 03/24/19 at 18:00 Hydralazine HCl (Apresoline) 10 mg Q6H PRN IV ELEVATED BLOOD PRESSURE; Start 03/24/19 at 17:00 Nitroglycerin (Nitroglycerin (Sl Tab) 0.4 Mg) 1 tab Q5M PRN SL ANGINA; Start 03/24/19 at 17:00 Pantoprazole (Protonix Tab) 40 mg DAILY@06 PO ; Start 03/25/19 at 06:00 Dextrose (D50w Syringe) 50 ml Q15M PRN IV For BS 50 or less; Start 03/24/19 at 17:00 Dextrose (D50w Syringe) 25 ml Q15M PRN IV BS between 50-70; Start 03/24/19 at 17:00 Diagnostic Test (Pha) (Accu-Chek) 1 ea Q1H XX Last administered on 03/25/19at 04:36; Admin Dose 1 EA; Start 03/24/19 at 17:00 Miscellaneous Information (* Miscellaneous Pharmacy Order) HYPOGLYCEMIA TREATMENT HYPOGLYCEM PROTOCOL PRN XX Hypoglycemia (BS < 70); Start 03/24/19 at 17:00 Potassium Chloride/Sodium Chloride 1,000 ml @ 0 mls/hr Q0M IV ; Start 03/24/19 at 16:57 Potassium Chloride/Dextrose/ Sod Cl 1,000 ml @ 0 mls/hr Q0M IV ; Start 03/24/19 at 16:57 Potassium Chloride/Sodium Chloride 1,000 ml @ 0 mls/hr Q0M IV Last administered on 03/24/19at 21:29; Admin Dose 100 MLS/HR; Start 03/24/19 at 16:57 Potassium Chloride/Dextrose/ Sod Cl 1,000 ml @ 0 mls/hr Q0M IV Last administered on 03/24/19at 21:32; Admin Dose 150 MLS/HR; Start 03/24/19 at 16:57 Sodium Chloride 1,000 ml @ 0 mls/hr Q0M IV ; Start 03/24/19 at 16:57 Dextrose/Sodium Chloride 1,000 ml @ 0 mls/hr Q0M IV ; Start 03/24/19 at 16:57 Insulin Human Regular 100 unit/ Sodium Chloride 101 ml @ 7.68 mls/hr DKA PROTOCOL IV Last administered on 03/24/19at 21:48; Admin Dose 7.68 MLS/HR; Start 03/24/19 at 17:00 Lactated Ringer's 1,000 ml @ 125 mls/hr Q8H IV ; Start 03/25/19 at 03:52 Meds reviewed: Yes Allergies Coded Allergies: No Known Allergy (Unverified , 03/24/19) Allergies Reviewed: Yes Labs/Studies Labs Reviewed: Reviewed by anesthesiologist Result Diagram: 03/24/19 1430 03/25/19 0054 Laboratory Tests 03/24/19 14:30 03/25/19 00:54 test: Negative Studies: ECG (sr), CXR (nl) Pre-procedure Exam Last vitals Vital Signs Date Temp Pulse Resp B/P (MAP) Pulse Ox O2 O2 Flow FiO2 Time Delivery Rate 03/25/19 95 04:00 03/25/19 15 114/71 100 Room Air 03:00 (85) 03/25/19 98.7 00:00 Airway: Adequate mouth opening Mallampati: Mallampati I Teeth: Normal Lung: Normal Heart: Normal ASA Physical Status ASA physical status: 2 Emergency: E Planned Anesthetic General/MAC: ETT Neuraxial: Spinal Nerve block: TAP (bilateral) Planned Pain Management Sub-arachniod narcotics, Single shot nerve block, Parenteral pain med Pre-operative Attestations Prior to commencing anesthesia and surgery, the patient was re-evaluated, there was verification of: *The patient's identity *The results of appropriate recent lab work and preoperative vital signs *The above evaluation not changing prior to induction *Anesthetic plan, risk benefits, alternative and complications discussed with patient/family; questions answered; patient/family understands, accepts and wishes to proceed. ZULEIKA SCHUSTER MD Mar 25, 2019 04:51
[2019-03-25] MEDS ORDERED: MIDAZOLAM 1 MG/ML 2 ML INJ ONE (04:52)
[2019-03-25] MEDS ORDERED: METOCLOPRAMIDE 10 MG INJ ONE (04:52)
[2019-03-25] MEDS ORDERED: BUPIVACAINE 0.25%/EPI (SDV) 30 ML INJ INJ ONE (05:00)
[2019-03-25] MEDS ORDERED: morphine SULFATE/PF (10 MG/10 ML) INJ ONE (05:09)
[2019-03-25] MEDS ORDERED: FENTAnyl 50 MCG/ML VIAL ONE ×2 (05:15→05:19)
[2019-03-25] MEDS ORDERED: BUPIVACAINE 0.25%/EPI (SDV) 30 ML INJ ONE (05:35)
[2019-03-25] MEDS ORDERED: CEFAZOLIN 1 GM INJ ONE (05:35)
[2019-03-25] MEDS ORDERED: PROPOFOL 20 ML ONE (05:35)
[2019-03-25] MEDS ORDERED: ROCURONIUM 50 MG INJ ONE ×2 (05:35→06:17)
[2019-03-25] MEDS ORDERED: ONDANSETRON 4 MG INJ ONE (07:11)
[2019-03-25] MEDS ORDERED: KETOROLAC 30 MG INJ ONE (07:11)
[2019-03-25] MEDS ORDERED: NEOSTIGMINE 3 MG/3 ML SYRINGE ONE (07:11)
[2019-03-25] MEDS ORDERED: GLYCOPYRROLATE 0.4 MG INJ ONE (07:11)
[2019-03-25] MEDS ORDERED: ROPIVACAINE 0.5 % 30 ML VIAL ONE (07:18)
--- NOTE | 2019-03-25 08:48 | PN ---
Date/Time of Note Date/Time of Note DATE: 03/25/19 TIME: 08:41 Assessment/Plan VTE Prophylaxis SCD applied (from Nsg): No SCD contraindicated: other Pharmacological prophylaxis: heparin Lines/Catheters IV Catheter Type (from Nrsg): Peripheral IV Urinary Cath still in place: No Assessment/Plan Hospital Course S: Patient seen by [facility] team and had emergent surgery performed earlier for ovarian torsion. O: VS - see below PHYSICAL EXAMINATION: GENERAL: lying in bed, somewhat lethargic HEENT: Pupils equal, round, and reactive to light. Extraocular muscles intact. NECK: Supple, no thyromegaly. LUNGS: Clear to auscultation bilaterally. CARDIOVASCULAR: S1, S2 heard. No rubs or gallops. ABDOMEN: Mild tenderness to palpation, left lower quadrant area. Otherwise, no rebound or guarding. MUSCULOSKELETAL: No lower extremity edema bilaterally. NEUROLOGIC: No focal deficits. MRI pelvis: IMPRESSION: 1. Left adnexal torsion with a pathologic lead point. 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 Urgent gynecology consultation is advised. 2. 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 3. Small volume free pelvic fluid. 4. 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 Recommend dedicated MRI of the left hip after the acute s ituation subsides. ASSESSMENT AND PLAN: 33-year-old female coming in with lower abdominal pain/ pelvic mass as well diabetic ketoacidosis. 1. Elevated blood sugars/DKA: diabetic ketoacidosis. Her A1c = 11.5. Again, she has no known prior history of diabetes. -For now continue to follow DKA protocol including aggressive IV fluid hydration, IV insulin, replete electrolytes as needed. - f/u TSH, A1c, and lipid panel. - Consider basket hand weaver consult and/or endocrinology consult. 2. Abdominal pain: pelvic MRI indicated ovarian torsion, and as mentioned above patient underwent emergent laparoscopic surgery by [facility] team to treat this. -Monitor, follow-up postop recommendations from [facility] team. - Continue IV fluids and pain control medications as well. 3. Gastrointestinal prophylaxis with PPI. 4. Deep venous thrombosis prophylaxis, heparin subcutaneously. Critical care time spent on patient care today equals 45 minutes. Result Diagram: 03/24/19 1430 03/25/19 0054 Results 24hrs Laboratory Tests Test 03/24/19 14:24 03/24/19 14:29 03/24/19 14:30 03/24/19 14:32 Urine Color YELLOW Urine Clarity CLEAR Urine pH 5.0 Urine Specific 1.031 H [place] Urine Ketones 2+ H Urine Nitrite NEGATIVE Urine Bilirubin NEGATIVE Urine NEGATIVE Urobilinogen Urine Leukocyte NEGATIVE Esterase Urine 5 Microscopic RBC Urine 4 Microscopic WBC Urine Bacteria FEW A Urine Hemoglobin 1+ H Urine Glucose 3+ H Urine Total 2+ H Protein Iron Level 32 L Total Iron 513 H Binding Capacity Percent Iron 6 L Saturation Free Thyroxine 0.95 Sodium Level 139 Potassium Level 4.2 Chloride Level 102 Carbon Dioxide 19 L Level Anion Gap 18 H Blood Urea 8 Nitrogen Creatinine 0.52 Est Glomerular > 60 Filtrat Rate mL/min Glucose Level 320 H Calcium Level 9.3 Total Bilirubin 0.4 Direct Bilirubin 0.00 Indirect 0.4 Bilirubin Aspartate Amino 44 Transf (AST/SGOT ) Alanine 44 Aminotransferase (ALT/SGPT) Alkaline 100 Phosphatase Total Protein 8.9 H Albumin 4.9 Globulin 4.00 H Albumin/Globulin 1.22 Ratio Lipase 108 White Blood 11.4 H Count Red Blood Count 5.68 H Hemoglobin 9.1 L Hematocrit 34.5 L Mean Corpuscular 60.7 L Volume Mean Corpuscular 16.0 L Hemoglobin Mean Corpuscular 26.4 L Hemoglobin Jelena nt Red Cell 21.5 H Distribution Width Platelet Count 309 Mean Platelet Volume Immature 0.300 Granulocytes % Neutrophils % 92.0 H Lymphocytes % 4.8 L Monocytes % 2.6 Eosinophils % 0.0 Basophils % 0.3 Nucleated Red 0.0 Blood Cells % Immature 0.040 H Granulocytes # Neutrophils # 10.5 H Lymphocytes # 0.6 L Monocytes # 0.3 Eosinophils # 0.0 Basophils # 0.0 Nucleated Red 0.0 Blood Cells # Hemoglobin A1c 11.5 H POC Beta HCG, NEGATIVE Qualitative Test 03/24/19 18:57 03/24/19 19:00 03/24/19 19:13 03/24/19 20:28 Blood Gas Blood venous Specimen Source Arterial Blood 03/24/2019 7:20: Date Drawn 43 PM Arterial Blood VENOUS LINE Gas Puncture Site Marcel Test N/A Venous Blood pH 7.341 Venous Blood 35.1 pCO2 (Temp Corrected) Venous Blood pO2 41.4 H (Temp Corrected) Venous Blood 18.6 L HCO3 Venous Blood 71.6 Oxygen Saturation Venous Blood -6.5 L Base Excess Venous Blood 9.5 Total Hemoglobin Venous Blood 71.0 Oxyhemoglobin Venous Blood 0.4 Methemoglobin Carboxyhemoglobi 0.4 n Blood Gas 37.0 Temperature Blood Gas ROOM AIR Modality FiO2 21.0 Blood Gas AA Notified Whom Blood Gas 03/24/2019 7:26: Notified Time 37 PM Sodium Level 135 Potassium Level 4.0 Chloride Level 103 Carbon Dioxide 17 L Level Anion Gap 15 H Blood Urea 7 Nitrogen Creatinine 0.42 L Est Glomerular > 60 Filtrat Rate mL/min Glucose Level 273 H Calcium Level 8.8 Phosphorus Level 2.9 Magnesium Level 1.6 L Bedside Glucose 280 H 283 H Test 03/24/19 21:26 03/24/19 21:34 03/24/19 23:11 03/25/19 00:10 Bedside Glucose 238 H 282 H 267 H Sodium Level 135 Potassium Level 3.8 Chloride Level 102 Carbon Dioxide 20 L Level Anion Gap 13 Blood Urea 6 L Nitrogen Creatinine 0.52 Est Glomerular > 60 Filtrat Rate mL/min Glucose Level 264 H Calcium Level 8.7 Phosphorus Level 3.8 Magnesium Level 1.6 L Test 03/25/19 00:54 03/25/19 00:57 03/25/19 01:10 03/25/19 02:06 Sodium Level 140 Potassium Level 3.8 Chloride Level 107 Carbon Dioxide 19 L Level Anion Gap 14 H Blood Urea 6 L Nitrogen Creatinine 0.51 Est Glomerular > 60 Filtrat Rate mL/min Glucose Level 277 H Calcium Level 8.9 Phosphorus Level 2.3 #L Magnesium Level 1.8 Blood Gas Blood venous Specimen Source Arterial Blood 03/25/2019 1:20: Date Drawn 25 AM Arterial Blood VENOUS LINE Gas Puncture Site Marcel Test N/A Venous Blood pH 7.469 H Venous Blood 24.3 L pCO2 (Temp Corrected) Venous Blood pO2 63.3 H (Temp Corrected) Venous Blood 17.2 L HCO3 Venous Blood 90.4 H Oxygen Saturation Venous Blood -5.3 L Base Excess Venous Blood 9.6 Total Hemoglobin Venous Blood 89.0 Oxyhemoglobin Venous Blood 0.4 Methemoglobin Carboxyhemoglobi 1.2 n Blood Gas 37.0 Temperature Blood Gas Actual 20 Respiration Rate Blood Gas ROOM AIR Modality FiO2 21.0 Blood Gas S.H. Notified Whom Blood Gas 03/25/2019 1:27: Notified Time 33 AM Bedside Glucose 307 H 226 H Test 03/25/19 03:03 03/25/19 03:58 03/25/19 08:25 Bedside Glucose 221 H 179 White Blood Pending Count Red Blood Count Pending Hemoglobin Pending Hematocrit Pending Mean Corpuscular Pending Volume Mean Corpuscular Pending Hemoglobin Mean Corpuscular Pending Hemoglobin Jelena nt Red Cell Pending Distribution Width Platelet Count Pending Mean Platelet Pending Volume Exam/Review of Systems Exam Vitals Vital Signs Date Temp Pulse Resp B/P (MAP) Pulse Ox O2 O2 Flow FiO2 Time Delivery Rate 03/25/19 98.8 08:11 03/25/19 86 04:57 03/25/19 14 138/72 100 04:05 (94) 03/25/19 Room Air 03:00 Intake and Output 03/24/19 03/24/19 03/25/19 1515:00 23:00 07:00 IntakeIntake Total 757.68 ml 1388.40 ml OutputOutput Total 700 ml BalanceBalance 757.68 ml 688.40 ml Results Results 24hrs Laboratory Tests Test 03/24/19 14:24 03/24/19 14:29 03/24/19 14:30 03/24/19 14:32 Urine Color YELLOW Urine Clarity CLEAR Urine pH 5.0 Urine Specific 1.031 H [place] Urine Ketones 2+ H Urine Nitrite NEGATIVE Urine Bilirubin NEGATIVE Urine NEGATIVE Urobilinogen Urine Leukocyte NEGATIVE Esterase Urine 5 Microscopic RBC Urine 4 Microscopic WBC Urine Bacteria FEW A Urine Hemoglobin 1+ H Urine Glucose 3+ H Urine Total 2+ H Protein Iron Level 32 L Total Iron 513 H Binding Capacity Percent Iron 6 L Saturation Free Thyroxine 0.95 Sodium Level 139 Potassium Level 4.2 Chloride Level 102 Carbon Dioxide 19 L Level Anion Gap 18 H Blood Urea 8 Nitrogen Creatinine 0.52 Est Glomerular > 60 Filtrat Rate mL/min Glucose Level 320 H Calcium Level 9.3 Total Bilirubin 0.4 Direct Bilirubin 0.00 Indirect 0.4 Bilirubin Aspartate Amino 44 Transf (AST/SGOT ) Alanine 44 Aminotransferase (ALT/SGPT) Alkaline 100 Phosphatase Total Protein 8.9 H Albumin 4.9 Globulin 4.00 H Albumin/Globulin 1.22 Ratio Lipase 108 White Blood 11.4 H Count Red Blood Count 5.68 H Hemoglobin 9.1 L Hematocrit 34.5 L Mean Corpuscular 60.7 L Volume Mean Corpuscular 16.0 L Hemoglobin Mean Corpuscular 26.4 L Hemoglobin Jelena nt Red Cell 21.5 H Distribution Width Platelet Count 309 Mean Platelet Volume Immature 0.300 Granulocytes % Neutrophils % 92.0 H Lymphocytes % 4.8 L Monocytes % 2.6 Eosinophils % 0.0 Basophils % 0.3 Nucleated Red 0.0 Blood Cells % Immature 0.040 H Granulocytes # Neutrophils # 10.5 H Lymphocytes # 0.6 L Monocytes # 0.3 Eosinophils # 0.0 Basophils # 0.0 Nucleated Red 0.0 Blood Cells # Hemoglobin A1c 11.5 H POC Beta HCG, NEGATIVE Qualitative Test 03/24/19 18:57 03/24/19 19:00 03/24/19 19:13 03/24/19 20:28 Blood Gas Blood venous Specimen Source Arterial Blood 03/24/2019 7:20: Date Drawn 43 PM Arterial Blood VENOUS LINE Gas Puncture Site Marcel Test N/A Venous Blood pH 7.341 Venous Blood 35.1 pCO2 (Temp Corrected) Venous Blood pO2 41.4 H (Temp Corrected) Venous Blood 18.6 L HCO3 Venous Blood 71.6 Oxygen Saturation Venous Blood -6.5 L Base Excess Venous Blood 9.5 Total Hemoglobin Venous Blood 71.0 Oxyhemoglobin Venous Blood 0.4 Methemoglobin Carboxyhemoglobi 0.4 n Blood Gas 37.0 Temperature Blood Gas ROOM AIR Modality FiO2 21.0 Blood Gas AA Notified Whom Blood Gas 03/24/2019 7:26: Notified Time 37 PM Sodium Level 135 Potassium Level 4.0 Chloride Level 103 Carbon Dioxide 17 L Level Anion Gap 15 H Blood Urea 7 Nitrogen Creatinine 0.42 L Est Glomerular > 60 Filtrat Rate mL/min Glucose Level 273 H Calcium Level 8.8 Phosphorus Level 2.9 Magnesium Level 1.6 L Bedside Glucose 280 H 283 H Test 03/24/19 21:26 03/24/19 21:34 03/24/19 23:11 03/25/19 00:10 Bedside Glucose 238 H 282 H 267 H Sodium Level 135 Potassium Level 3.8 Chloride Level 102 Carbon Dioxide 20 L Level Anion Gap 13 Blood Urea 6 L Nitrogen Creatinine 0.52 Est Glomerular > 60 Filtrat Rate mL/min Glucose Level 264 H Calcium Level 8.7 Phosphorus Level 3.8 Magnesium Level 1.6 L Test 03/25/19 00:54 03/25/19 00:57 03/25/19 01:10 03/25/19 02:06 Sodium Level 140 Potassium Level 3.8 Chloride Level 107 Carbon Dioxide 19 L Level Anion Gap 14 H Blood Urea 6 L Nitrogen Creatinine 0.51 Est Glomerular > 60 Filtrat Rate mL/min Glucose Level 277 H Calcium Level 8.9 Phosphorus Level 2.3 #L Magnesium Level 1.8 Blood Gas Blood venous Specimen Source Arterial Blood 03/25/2019 1:20: Date Drawn 25 AM Arterial Blood VENOUS LINE Gas Puncture Site Marcel Test N/A Venous Blood pH 7.469 H Venous Blood 24.3 L pCO2 (Temp Corrected) Venous Blood pO2 63.3 H (Temp Corrected) Venous Blood 17.2 L HCO3 Venous Blood 90.4 H Oxygen Saturation Venous Blood -5.3 L Base Excess Venous Blood 9.6 Total Hemoglobin Venous Blood 89.0 Oxyhemoglobin Venous Blood 0.4 Methemoglobin Carboxyhemoglobi 1.2 n Blood Gas 37.0 Temperature Blood Gas Actual 20 Respiration Rate Blood Gas ROOM AIR Modality FiO2 21.0 Blood Gas S.H. Notified Whom Blood Gas 03/25/2019 1:27: Notified Time 33 AM Bedside Glucose 307 H 226 H Test 03/25/19 03:03 03/25/19 03:58 03/25/19 08:25 Bedside Glucose 221 H 179 White Blood Pending Count Red Blood Count Pending Hemoglobin Pending Hematocrit Pending Mean Corpuscular Pending Volume Mean Corpuscular Pending Hemoglobin Mean Corpuscular Pending Hemoglobin Jelena nt Red Cell Pending Distribution Width Platelet Count Pending Mean Platelet Pending Volume Medications Medication Current Medications Sodium Chloride 1,000 ml @ 0 mls/hr Q0M IV ; Start 03/24/19 at 16:57 Miscellaneous Information (* Miscellaneous Pharmacy Order) HYPOGLYCEMIA TREATMENT HYPOGLYCEM PROTOCOL PRN XX .HYPOGLYCEMIA PROTOCOL; Start 03/24/19 at 17:00 Dextrose (D50w Syringe) 50 ml Q15M PRN IV .DECREASED GLUCOSE; Start 03/24/19 at 17:00 Dextrose (D50w Syringe) 25 ml Q15M PRN IV .DECREASED GLUCOSE; Start 03/24/19 at 17:00 IV Flush (NS 3 ml) 3 ml PER PROTOCOL IV ; Start 03/24/19 at 17:00 Ondansetron HCl (Zofran Inj) 4 mg Q6H PRN IV NAUSEA/VOMITING Last administered on 03/25/19at 00:38; Admin Dose 4 MG; Start 03/24/19 at 17:00 Acetaminophen (Tylenol Tab) 650 mg Q6H PRN PO .PAIN 1-3 OR TEMP; Start 03/24/19 at 17:00 Acetaminophen/ Hydrocodone Bitart ([place] (5/325)) 1 tab Q6H PRN PO .MOD PAIN 4- 6; Start 03/24/19 at 17:00 Morphine Sulfate (morphine) 2 mg Q4H PRN IV .SEVERE PAIN 7-10 Last administered on 03/25/19at 00:38; Admin Dose 2 MG; Start 03/24/19 at 17:00 Docusate Sodium (Colace) 100 mg Q12H PRN PO .CONSTIPATION; Start 03/24/19 at 17:00 Magnesium Hydroxide (Milk Of Mag) 30 ml DAILY PRN PO .CONSTIPATION; Start 03/24/19 at 17:00 Heparin Sodium (Porcine) (Heparin (5000 Units/1ml)) 5,000 unit Q12 SC ; Start 03/24/19 at 21:00 Lorazepam (Ativan) 0.5 mg Q6H PRN IV ANXIETY; Start 03/24/19 at 17:00 Albuterol/ Ipratropium (Duoneb) 3 ml Q4H RESP THERAPY PRN HHN SHORTNESS OF BREATH; Start 03/24/19 at 17:00 Piperacillin Sod/ Tazobactam Sod 100 ml @ 200 mls/hr Q6 IVPB Last administered on 03/25/19at 01:27; Admin Dose 200 MLS/HR; Start 03/24/19 at 18:00 Hydralazine HCl (Apresoline) 10 mg Q6H PRN IV ELEVATED BLOOD PRESSURE; Start 03/24/19 at 17:00 Nitroglycerin (Nitroglycerin (Sl Tab) 0.4 Mg) 1 tab Q5M PRN SL ANGINA; Start 03/24/19 at 17:00 Pantoprazole (Protonix Tab) 40 mg DAILY@06 PO ; Start 03/25/19 at 06:00 Dextrose (D50w Syringe) 50 ml Q15M PRN IV For BS 50 or less; Start 03/24/19 at 17:00 Dextrose (D50w Syringe) 25 ml Q15M PRN IV BS between 50-70; Start 03/24/19 at 17:00 Diagnostic Test (Pha) (Accu-Chek) 1 ea Q1H XX Last administered on 03/25/19at 04:36; Admin Dose 1 EA; Start 03/24/19 at 17:00 Miscellaneous Information (* Miscellaneous Pharmacy Order) HYPOGLYCEMIA TREATMENT HYPOGLYCEM PROTOCOL PRN XX Hypoglycemia (BS < 70); Start 03/24/19 at 17:00 Potassium Chloride/Sodium Chloride 1,000 ml @ 0 mls/hr Q0M IV ; Start 03/24/19 at 16:57 Potassium Chloride/Dextrose/ Sod Cl 1,000 ml @ 0 mls/hr Q0M IV ; Start 03/24/19 at 16:57 Potassium Chloride/Sodium Chloride 1,000 ml @ 0 mls/hr Q0M IV Last administered on 03/24/19at 21:29; Admin Dose 100 MLS/HR; Start 03/24/19 at 16:57 Potassium Chloride/Dextrose/ Sod Cl 1,000 ml @ 0 mls/hr Q0M IV Last adm inistered on 03/24/19at 21:32; Admin Dose 150 MLS/HR; Start 03/24/19 at 16:57 Sodium Chloride 1,000 ml @ 0 mls/hr Q0M IV ; Start 03/24/19 at 16:57 Dextrose/Sodium Chloride 1,000 ml @ 0 mls/hr Q0M IV ; Start 03/24/19 at 16:57 Insulin Human Regular 100 unit/ Sodium Chloride 101 ml @ 7.68 mls/hr DKA PROTOCOL IV Last administered on 03/24/19at 21:48; Admin Dose 7.68 MLS/HR; Start 03/24/19 at 17:00 Lactated Ringer's 1,000 ml @ 125 mls/hr Q8H IV ; Start 03/25/19 at 03:52 JOE VALENCIA Mar 25, 2019 08:48
--- NOTE | 2019-03-25 08:55 | OPR ---
Date/Time of Note Date/Time of Note DATE: 03/25/19 TIME: 08:44 Operative Report Free Text/Dictation March 25, 2019 Procedure Date: Mar 25, 2019 Preoperative Diagnosis 1. Abdominal pain 2. Left ovarian cystic mass with torsion 3. Enlarged right ovary 4. DKA Postoperative Diagnosis Left enlarged cystic ovarian mass with torsion, size about 7 x 5 cm The whole left ovary was enlarged, engorged, torsed. Hemorrhagic and dark, without good viable tissue Right ovary with evidence of polycystic with multiple small cysts in the periphery of the ovary as well as 2 cm simple cyst as well as some calcified area> undersurface Status post biopsy of the right ovary Right tube appears normal Pelvic adhesions with adhesion of the omentum to the anterior cul-de-sac Operation/Procedure Performed 1. Diagnostic laparoscopy 2. Attempt laparoscopic left oophorectomy, converted to open laparotomy due to malfunction of the energy device. Several energy device used, are not functioning 3. Open laparotomy 4. Left oophorectomy with detorsion of the left tube 5 biopsy of the right ovary. With drainage of the cyst. 6. 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 She was noted to be in DKA. She denied any prior history of diabetes in the past. Reports had a history of prediabetes and was on metformin for short period of time. During evaluation for the reason abdominal pain left adnexal complex mass noted with evidence of torsion and MRI and ultrasound. Patient's DKA was managed by primary team. She was admitted in ICU. Due to ultrasound and MRI finding MANAGER COMPETITIVE INTELLIGENCE consulted. After evaluation of the records and clinical picture patient was candidate for surgery. Risks and benefits of surgery including risk of infection, bleeding, damage to surrounding structures including bowel and bladder and risk of blood transfusion including but not limited to blood borne infection including HIV, hepatitis B and C and transfusion reaction discussed with patient in detail. Risk of conversion to open procedures were explained. Patient consented for diagnostic laparoscopy possible laparoscopic left oophorectomy possible salpingo-oophorectomy and right ovarian biopsy and informed consent was obtained. Patient verbalized understanding and desire to proceed. She received 2 g of Ancef prior to be taken to the OR and then was taken to the OR and was placed under adequate general anesthesia under dorsal lithotomy p osition. Timeout procedure was completed and patient was admitted identified correctly. Then after prep and drape under sterile fashion face and 5 cc of quarter percent Marcaine inside the umbilicus injected then a 5 mm incision was made inside the umbilicus. Veress needle was passed through the umbilicus. Two snap sound and negative saline aspiration positive saline drop test confirmed intra-abdominal cavity placement of Veress needle. Then insufflation started using CO2 gas at 5 mmHg. After insufflation of about 1/2 L of gas then a 5 mm trocar from the umbilicus under direct visualization passed inside the abdomen. Then while the patient was in Trendelenburg the entire abdomen and pelvis was investigated and evaluated. There was evidence of a large about 7 to 8 x 5 to 6 cm left adnexal complex mass hemorrhagic and appears to be grossly benign, and in fact more para ovarian versus paratubal cyst., but there was torsed tubo- ovarian cystic structure in the right side. There was no scar adhesion in the pelvis. Left tube and ovary looks normal. At this,time. first a 5 mm trocar first in the left side and then in the RT side under direct visualization placed after negative transillumination test. Then attempt was made to lyse the omental adhesion to the peritoneum at the reflection of the bladder since there was some omental adhesion in the anterior cul-de-sac that obstructed complete visualization of the ovary and tubes. Attempted to lysis of adhesion using under good device but was unsuccessful due to defective device x2. Due to poor visualization and difficulty accessing the entire pelvis without opening adhesions decision was made to convert the surgery to open laparotomy. At this point the trochars from the umbilicus and right and left lower abdomen were removed and then using a scalpel and the skin incision was made, carried down to the underlying layer of fascia using scalpel and Bovie. Then the fascial incision was opened transversely. Then the superior aspect of the fascial incision was grasped using Yamilex, was elevated and was dissected off of the rectus muscle using sharp dissection and Bovie. Then the Chantel, elevated and was dissected off of the parameters muscle in a similar fashion. Inferior aspect of the incision in a similar fashion using rectus muscle was then in the midline. Parietal peritoneum was identified. Then it was entered bluntly. Intra-abdominal cavity entered without any complication. The pelvis evaluated. The ovary in the left side was noted to be twisted around its pedicle including the tube and appeared to be gangrenous. At this point decision was made to proceed with salpingo- oophorectomy in the left side. After delivery of the tubo-ovarian structure in the left side through the abdominal incision using Tamir clamp the twisted tubo-ovarian structure was clamped doubly and using 1-0 Vicryl using Tamir clamp doubly ligated and then the left tube and ovary with associated cystic structure was gangrenous was removed and was sent to pathology. Hemostasis of the pedicle was reassured. Then the right ovary assessed and evaluated. The surface of the right ovary with thickened white and glossy appearance with evidence of multiple follicular cyst on the surface as well as some small areas of hard calcified as well has some pedunculated blebs over the surface of the ovary. At this point the decision was made to proceed with biopsy of the right ovary. Biopsy from the small calcified area on the surface of the right ovary was performed. Also there was evidence of 2 cm follicular cyst that was drained and the fifth cavity was excised and was sent to pathology. Hemostasis of the base of the cyst obtained using Bovie and fibrillar. After reassurance about the hemostasis the ovary and its associated tubes that appeared to be normal return to the abdominal cavity. Then irrigation of the abdomen and pelvis performed using warm normal saline. Of note that pelvic washing was also done and was sent separately to pathology. Specimen was included the entire left ovary with associated hemorrhagic gangrenous cyst as well as biopsy of the surface of the right ovary with cyst wall biopsy in the right side. There is a specimen were marked and separately was sent to pathology. After irrigation and assurance of the hemostasis obtained. Then the parietoperitoneum repaired using 2-0 Vicryl. And the rectus muscle was reapproximated using 2-0 Vicryl. Then the fascia was reapproximated using 1-0 Vicryl in a continuous fashion. And irrigation of subcutaneous tissue performed using warm normal saline. Using 2-0 plain gut subcutis tissue was reapproximated and at the end skin was reapproximated using 3-0 Monocryl in subcuticular fashion. Patient tolerated the procedure well. Sponge lap needle counts were correct x2. Patient was then transferred to recovery room in stable condition DUKE PUGH MD Mar 25, 2019 08:54
[2019-03-25] MEDS: PANTOPRAZOLE (EC) 40 MG TAB PO SCH (09:23)
[2019-03-25] MEDS: LACTATED RINGER'S 1,000 ML IV SCH ×3 (09:24→17:28)
[2019-03-25] MEDS: HEPARIN 5,000 UNIT/1 ML VIAL SC SCH ×2 (09:46→21:03)
[2019-03-25] MEDS ORDERED: POTASSIUM PHOSPHATE 20 MEQ in SOD CHLORIDE 0.9% 250 ML IVPB ONE (10:00)
[2019-03-25] MEDS ORDERED: GLUCAGON 1 MG INJ IM PRN (10:00)
[2019-03-25] MEDS ORDERED: INSULIN GLARGINE [LANTus] (100 UNITS/ML) SYG SC SCH (10:00)
[2019-03-25] MEDS ORDERED: DEXTROSE 50% 50 ML SYRINGE IV PRN ×2 (10:00)
[2019-03-25] MEDS ORDERED: GLUCOSE GEL 15 GRAM TUBE PO PRN ×2 (10:00)
[2019-03-25] MEDS ORDERED: GLUCOSE GEL 15 GRAM TUBE BUCCAL PRN (10:00)
[2019-03-25] MEDS ORDERED: MAGNESIUM SULFATE 1 GM/D5W 100 ML IVPB ONE (10:30)
[2019-03-25] MEDS: INSULIN ASPART [NOVOLOG] 3 ML PEN SC SCH ×3 (12:24→21:02)
[2019-03-25] MEDS: HYDROCODONE/APAP (5/325) TAB PO PRN (17:28)
[2019-03-26 00:15] VITALS: BP 130/59; PULSE 103; RESP 18
[2019-03-26] MEDS: ACETAMINOPHEN 325 MG TAB PO PRN ×2 (00:22→18:46)
[2019-03-26] MEDS: ACCU-CHEK XX SCH (01:43)
[2019-03-26] MEDS: IBUPROFEN 600 MG TAB PO PRN ×2 (01:51→16:27)
[2019-03-26] MEDS: LACTATED RINGER'S 1,000 ML IV SCH ×3 (01:55→19:52)
[2019-03-26 04:43] VITALS: BP 122/57; PULSE 78; RESP 18
[2019-03-26] MEDS: PIPER-TAZO 3.375 GM IV (PMX) 100 ML IVPB SCH ×3 (05:28→18:00)
[2019-03-26] MEDS: PANTOPRAZOLE (EC) 40 MG TAB PO SCH (05:28)
[2019-03-26 07:30] VITALS: BP 121/62; PULSE 82; RESP 19
[2019-03-26] MEDS ORDERED: INSULIN GLARGINE [LANTus] (100 UNITS/ML) SYG SC SCH (08:00)
[2019-03-26] MEDS: INSULIN ASPART [NOVOLOG] 3 ML PEN SC SCH ×6 (08:21→21:00)
[2019-03-26] MEDS: HEPARIN 5,000 UNIT/1 ML VIAL SC SCH (08:23)
[2019-03-26] MEDS: HYDROCODONE/APAP (5/325) TAB PO PRN ×2 (08:26→15:11)
--- NOTE | 2019-03-26 08:26 | PAC ---
Date/Time of Note Date/Time of Note DATE: 03/26/19 TIME: 08:26 Post-Anesthesia Notes Post-Anesthesia Note Last documented vital signs Vital Signs Date Temp Pulse Resp B/P (MAP) Pulse Ox O2 O2 Flow FiO2 Time Delivery Rate 03/26/19 98.2 82 19 121/62 98 07:30 (81) 03/25/19 Simple 8.0 18:55 Mask Activity: WNL Respiratory function: WNL Cardiovascular function: WNL Mental status: Baseline Pain reasonably controlled: Yes Hydration appropriate: Yes Nausea/Vomiting absent: No ZULEIKA SCHUSTER MD Mar 26, 2019 08:26
--- NOTE | 2019-03-26 08:30 | OPPN ---
Date/Time of Note Date/Time of Note DATE: 03/26/19 TIME: 08:26 Anesthesia Follow up Anesthesia Follow up Last documented vital signs Vital Signs Date Temp Pulse Resp B/P (MAP) Pulse Ox O2 O2 Flow FiO2 Time Delivery Rate 03/26/19 98.2 82 19 121/62 98 07:30 (81) 03/25/19 Simple 8.0 18:55 Mask Respiratory function: WNL Cardiovascular function: WNL Comments A 33 year old s/p GA, spinal duramorph for post op pain, POD#1 is doing fine. No pain, itching, headache, neural deficit, N/V. vare per surgery ZULEIKA SCHUSTER MD Mar 26, 2019 08:30
[2019-03-26] MEDS ORDERED: POTASSIUM CHLORIDE (SR) 20 MEQ TAB PO STA (10:54)
--- NOTE | 2019-03-26 11:03 | PN ---
Date/Time of Note Date/Time of Note DATE: 03/26/19 TIME: 10:57 Assessment/Plan VTE Prophylaxis Risk score (from Nsg)>0 risk: 3 SCD applied (from Nsg): Yes Pharmacological prophylaxis: other Lines/Catheters IV Catheter Type (from Nrsg): Saline Lock Urinary Cath still in place: Yes Reason Cath still needed: urinary retention Assessment/Plan Hospital Course S: Patient out of ICU now, did have some fevers last night. Tolerating diet. Patient did state some mild vaginal spotting/mild bleeding. O: VS - see below PHYSICAL EXAMINATION: GENERAL: lying in bed, somewhat lethargic HEENT: Pupils equal, round, and reactive to light. Extraocular muscles intact. NECK: Supple, no thyromegaly. LUNGS: Clear to auscultation bilaterally. CARDIOVASCULAR: S1, S2 heard. No rubs or gallops. ABDOMEN: Mild tenderness to palpation, left lower quadrant area. Otherwise, no rebound or guarding. MUSCULOSKELETAL: No lower extremity edema bilaterally. NEUROLOGIC: No focal deficits. MRI pelvis: IMPRESSION: 1. Left adnexal torsion with a pathologic lead point. 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 Urgent gynecology consultation is advised. 2. 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 3. Small volume free pelvic fluid. 4. 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 Recommend dedicated MRI of the left hip after the acute situation subsides. ASSESSMENT AND PLAN: 33-year-old female coming in with lower abdominal pain/pelvic mass as well diabetic ketoacidosis. 1. Elevated blood sugars/DKA: Patient presented with mild diabetic ketoacidosis. Her A1c = 11.5. This has resolved now, but sugars in the last 24 hours of been the 200-250 range. Again, she had no known prior history of diabetes. -For now will continue ISS, increase Lantus dose as well as add aspart with meals, continue IV fluids -Given fevers, will check a set of urine and blood cultures, consider chest x-ray as well. 2. Abdominal pain: pelvic MRI indicated ovarian torsion, and as mentioned above patient underwent emergent laparoscopic surgery by [employer]CH[employer] team to treat this postop day #1. Hemoglobin today slightly lower at 7.2. -Will recheck H&H today -Monitor, follow-up postop recommendations from [employer] team. - Continue IV fluids and pain control medications as well. 3. Gastrointestinal prophylaxis with PPI. 4. Deep venous thrombosis prophylaxis-SCDs Result Diagram: 03/26/19 0448 03/26/19 0449 Results 24hrs Laboratory Tests Test 03/25/19 12:17 03/25/19 17:20 03/25/19 20:57 03/26/19 01:26 Bedside Glucose 315 H 212 235 H 236 H Test 03/26/19 04:48 03/26/19 04:49 03/26/19 08:18 White Blood Count 9.4 # Red Blood Count 4.37 Hemoglobin 7.2 L Hematocrit 26.7 L Mean Corpuscular 61.1 L Volume Mean Corpuscular 16.5 L Hemoglobin Mean Corpuscular 27.0 L Hemoglobin Concent Red Cell 20.6 H Distribution Width Platelet Count 267 # Mean Platelet Volume Immature 0.400 Granulocytes % Neutrophils % 74.4 Lymphocytes % 14.9 L Monocytes % 9.7 Eosinophils % 0.4 Basophils % 0.2 Nucleated Red Blood 0.0 Cells % Immature 0.040 H Granulocytes # Neutrophils # 7.0 Lymphocytes # 1.4 Monocytes # 0.9 Eosinophils # 0.0 Basophils # 0.0 Nucleated Red Blood 0.0 Cells # Sodium Level 140 Potassium Level 3.3 L Chloride Level 110 Carbon Dioxide Level 23 Anion Gap 7 Blood Urea Nitrogen 4 L Creatinine 0.60 Est Glomerular > 60 Filtrat Rate mL/min Glucose Level 250 H Calcium Level 8.3 L Bedside Glucose 239 H Exam/Review of Systems Exam Vitals Vital Signs Date Temp Pulse Resp B/P (MAP) Pulse Ox O2 O2 Flow FiO2 Time Delivery Rate 03/26/19 98.2 82 19 121/62 98 07:30 (81) 03/25/19 Simple 8.0 18:55 Mask Intake and Output 03/25/19 03/25/19 03/26/19 1515:00 23:00 07:00 IntakeIntake Total 2587.5 ml 912.5 ml 2150 ml OutputOutput Total 1615 ml 275 ml 2900 ml BalanceBalance 972.5 ml 637.5 ml -750 ml Results Results 24hrs Laboratory Tests Test 03/25/19 12:17 03/25/19 17:20 03/25/19 20:57 03/26/19 01:26 Bedside Glucose 315 H 212 235 H 236 H Test 03/26/19 04:48 03/26/19 04:49 03/26/19 08:18 White Blood Count 9.4 # Red Blood Count 4.37 Hemoglobin 7.2 L Hematocrit 26.7 L Mean Corpuscular 61.1 L Volume Mean Corpuscular 16.5 L Hemoglobin Mean Corpuscular 27.0 L Hemoglobin Concent Red Cell 20.6 H Distribution Width Platelet Count 267 # Mean Platelet Volume Immature 0.400 Granulocytes % Neutrophils % 74.4 Lymphocytes % 14.9 L Monocytes % 9.7 Eosinophils % 0.4 Basophils % 0.2 Nucleated Red Blood 0.0 Cells % Immature 0.040 H Granulocytes # Neutrophils # 7.0 Lymphocytes # 1.4 Monocytes # 0.9 Eosinophils # 0.0 Basophils # 0.0 Nucleated Red Blood 0.0 Cells # Sodium Level 140 Potassium Level 3.3 L Chloride Level 110 Carbon Dioxide Level 23 Anion Gap 7 Blood Urea Nitrogen 4 L Creatinine 0.60 Est Glomerular > 60 Filtrat Rate mL/min Glucose Level 250 H Calcium Level 8.3 L Bedside Glucose 239 H Medications Medication Current Medications Miscellaneous Information (* Miscellaneous Pharmacy Order) HYPOGLYCEMIA TREATMENT HYPOGLYCEM PROTOCOL PRN XX .HYPOGLYCEMIA PROTOCOL; Start 03/24/19 at 17:00 IV Flush (NS 3 ml) 3 ml PER PROTOCOL IV ; Start 03/24/19 at 17:00 Ondansetron HCl (Zofran Inj) 4 mg Q6H PRN IV NAUSEA/VOMITING Last administered on 03/25/19at 00:38; Admin Dose 4 MG; Start 03/24/19 at 17:00 Acetaminophen (Tylenol Tab) 650 mg Q6H PRN PO .PAIN 1-3 OR TEMP Last adminis tered on 03/26/19at 00:22; Admin Dose 650 MG; Start 03/24/19 at 17:00 Morphine Sulfate (morphine) 2 mg Q4H PRN IV .SEVERE PAIN 7-10 Last administered on 03/25/19at 00:38; Admin Dose 2 MG; Start 03/24/19 at 17:00 Docusate Sodium (Colace) 100 mg Q12H PRN PO .CONSTIPATION; Start 03/24/19 at 17:00 Magnesium Hydroxide (Milk Of Mag) 30 ml DAILY PRN PO .CONSTIPATION; Start 03/24/19 at 17:00 Lorazepam (Ativan) 0.5 mg Q6H PRN IV ANXIETY; Start 03/24/19 at 17:00 Albuterol/ Ipratropium (Duoneb) 3 ml Q4H RESP THERAPY PRN HHN SHORTNESS OF BREATH; Start 03/24/19 at 17:00 Piperacillin Sod/ Tazobactam Sod 100 ml @ 200 mls/hr Q6 IVPB Last administered on 03/26/19at 05:28; Admin Dose 200 MLS/HR; Start 03/24/19 at 18:00 Hydralazine HCl (Apresoline) 10 mg Q6H PRN IV ELEVATED BLOOD PRESSURE; Start 03/24/19 at 17:00 Nitroglycerin (Nitroglycerin (Sl Tab) 0.4 Mg) 1 tab Q5M PRN SL ANGINA; Start 03/24/19 at 17:00 Pantoprazole (Protonix Tab) 40 mg DAILY@06 PO Last administered on 03/26/19at 05:28; Admin Dose 40 MG; Start 03/25/19 at 06:00 Lactated Ringer's 1,000 ml @ 125 mls/hr Q8H IV Last administered on 03/26/19at 01:55; Admin Dose 125 MLS/HR; Start 03/25/19 at 03:52 Diagnostic Test (Pha) (Accu-Chek) 1 ea 02 XX ; Start 03/26/19 at 02:00 Insulin Aspart (Novolog Insulin Pen) NOVOLOG *MODERATE* ALGORITHM WITH MEALS BEDTIME SC Last administered on 03/26/19at 08:21; Admin Dose 6 UNIT; Start 03/25/19 at 11:30 Miscellaneous Information 1 ea NOTE XX ; Start 03/25/19 at 10:00 Glucose (Glutose) 15 gm Q15M PRN PO DECREASED GLUCOSE; Start 03/25/19 at 10:00 Glucose (Glutose) 22.5 gm Q15M PRN PO DECREASED GLUCOSE; Start 03/25/19 at 10:00 Dextrose (D50w Syringe) 25 ml Q15M PRN IV DECREASED GLUCOSE; Start 03/25/19 at 10:00 Dextrose (D50w Syringe) 50 ml Q15M PRN IV DECREASED GLUCOSE; Start 03/25/19 at 10:00 Glucagon (Glucagen) 1 mg Q15M PRN IM DECREASED GLUCOSE; Start 03/25/19 at 10:00 Glucose (Glutose) 15 gm Q15M PRN BUCCAL DECREASED GLUCOSE; Start 03/25/19 at 10:00 Ibuprofen (Motrin) 600 mg Q8H PRN PO MILD PAIN(1-3)OR ELEVATED TEMP Last administered on 03/26/19at 01:51; Admin Dose 600 MG; Start 03/25/19 at 10:00 Acetaminophen/ Hydrocodone Bitart ([place] (5/325)) 1 tab Q4H PRN PO PAIN LEVEL 6-10 Last administered on 03/26/19at 08:26; Admin Dose 1 TAB; Start 03/25/19 at 10:00 Insulin Glargine (Lantus) 16 units DAILY@0800 SC Last administered on 03/26/19at 08:23; Admin Dose 16 UNITS; Start 03/26/19 at 08:00 JOE VALENCIA Mar 26, 2019 11:03
[2019-03-26 14:24] VITALS: BP 128/58; PULSE 92; RESP 19
--- NOTE | 2019-03-26 18:05 | QN ---
Documentation Comment passin flatus c/o gas pain vss afebrile abdomen soft wound dry calf neg for tendernss post op H&H 7.2 26.8 IM transfusing RBC x2 unit A stable s/p exp lap left oophorectomy anemia P d/c [facility] ambulate SCOTT ASHRAF MD Mar 26, 2019 18:05
[2019-03-26 19:44] VITALS: BP 140/71; PULSE 91; RESP 18
[2019-03-27] MEDS: PIPER-TAZO 3.375 GM IV (PMX) 100 ML IVPB SCH ×5 (00:09→16:54)
[2019-03-27] MEDS: ACCU-CHEK XX SCH (00:44)
[2019-03-27 01:54] VITALS: BP 151/73; PULSE 83; RESP 18
[2019-03-27] MEDS ORDERED: ACCU-CHEK XX SCH (02:00)
[2019-03-27] MEDS: PANTOPRAZOLE (EC) 40 MG TAB PO SCH (05:21)
[2019-03-27] MEDS: HYDROCODONE/APAP (5/325) TAB PO PRN (05:22)
[2019-03-27] MEDS: LACTATED RINGER'S 1,000 ML IV SCH ×3 (05:22→19:52)
[2019-03-27 08:07] VITALS: BP 137/73; PULSE 81; RESP 18
[2019-03-27] MEDS: INSULIN ASPART [NOVOLOG] 3 ML PEN SC SCH ×7 (08:55→21:00)
[2019-03-27] MEDS: INSULIN GLARGINE [LANTus] (100 UNITS/ML) SYG SC SCH (08:56)
[2019-03-27] MEDS: IBUPROFEN 600 MG TAB PO PRN (09:06)
--- NOTE | 2019-03-27 12:08 | QN ---
Documentation Comment POD #2 s/p ex lap with right salpingoophorectomy due to torsion with necrosis of the ovary. Pt also was found to be an undiagnosed diabetic in ketoacidosis. She spent the 1st night in the ICU but is stable now on insulin. Pt is doing well pain-tineo and has been up and ambulating. Her primary issue now is to ensure she has adequate diabetic teaching for diet and insulin administration prior to d/c. T=98.7 BP 137/73 Incisions are all clean, dry and intact with surgical glue covering. She has a Pfannensteil incision and laparoscopic port sites. There is no evidence of infection and no abdominal distention. Ext NT, no edema. WBC 7.7 Hgb 9.3 Plts 258K K+ is 3.3 (sl. low). P: Will speak to nursing to ensure adequate teaching prior to discharge. If not for the diabetes the pt could be d/c'ed today. Will need some pain meds at home. URIEL PAULSON MD Mar 27, 2019 12:08
[2019-03-27] MEDS ORDERED: POTASSIUM CHLORIDE (SR) 20 MEQ TAB PO STA (15:04)
--- NOTE | 2019-03-27 15:12 | PN ---
Date/Time of Note Date/Time of Note DATE: 03/27/19 TIME: 15:05 Assessment/Plan VTE Prophylaxis Risk score (from Nsg)>0 risk: 1 SCD applied (from Nsg): Yes Pharmacological prophylaxis: other Lines/Catheters IV Catheter Type (from Nrsg): Saline Lock Urinary Cath still in place: No Assessment/Plan Hospital Course S: Patient had PRBC transfusion performed yesterday. Sugars improved with adjustments in insulin yesterday. Per nursing staff having problems with obtaining successful IV access for the patient however. Per nursing staff ambulating now and having less abdominal pain, seen by BENCH EXAMINER team earlier today as well. O: VS - see below PHYSICAL EXAMINATION: GENERAL: lying in bed, NAD HEENT: Pupils equal, round, and reactive to light. Extraocular muscles intact. NECK: Supple, no thyromegaly. LUNGS: Clear to auscultation bilaterally. CARDIOVASCULAR: S1, S2 heard. No rubs or gallops. ABDOMEN: Less tenderness to palpation, left lower quadrant area. Otherwise, no rebound or guarding. MUSCULOSKELETAL: No lower extremity edema bilaterally. NEUROLOGIC: No focal deficits. MRI pelvis: IMPRESSION: 1. Left adnexal torsion with a pathologic lead point. 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 Urgent gynecology consultation is advised. 2. 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 3. Small volume free pelvic fluid. 4. 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 Recommend dedicated MRI of the left hip after the acute situation subsides. ASSESSMENT AND PLAN: 33-year-old female coming in with lower abdominal pain/pelvic mass as well diabetic ketoacidosis. 1. Elevated blood sugars/DKA: Patient presented with mild diabetic ketoacidosis. Her A1c = 11.5. Sugars have been improved in the last 24 hours with adjustments made to the insulins; again, she had no known prior history of diabetes. -For now continue ISS, Lantus and aspart with meals, IV fluids -Follow up final results of repeat cultures 2. Abdominal pain: pelvic MRI indicated ovarian torsion, and as mentioned above patient underwent emergent laparoscopic surgery by BENCH EXAMINER team to treat this postop day # 2. Hemoglobin today improved to 9.3 after PRBC transfusion given yesterday. -Monitor, follow-up postop recommendations from BENCH EXAMINER team. - Continue IV fluids and pain control medications as well. 3. Gastrointestinal prophylaxis with PPI. 4. Deep venous thrombosis prophylaxis-SCDs Result Diagram: 03/27/19 0440 03/27/19 0440 Results 24hrs Laboratory Tests Test 03/26/19 17:54 03/26/19 21:05 03/27/19 04:40 03/27/19 07:03 Bedside Glucose 241 H 125 White Blood Count 7.7 Red Blood Count 4.93 Hemoglobin 9.3 #L Hematocrit 32.6 #L Mean Corpuscular 66.1 L Volume Mean Corpuscular 18.9 L Hemoglobin Mean Corpuscular 28.5 L Hemoglobin Concen t Red Cell 26.0 #H Distribution Width Platelet Count 258 Mean Platelet Volume Immature 0.300 Granulocytes % Neutrophils % 71.1 Lymphocytes % 17.6 Monocytes % 8.7 Eosinophils % 1.8 Basophils % 0.5 Nucleated Red 0.0 Blood Cells % Immature 0.020 Granulocytes # Neutrophils # 5.4 Lymphocytes # 1.4 Monocytes # 0.7 Eosinophils # 0.1 Basophils # 0.0 Nucleated Red 0.0 Blood Cells # Sodium Level 141 Potassium Level 3.3 L Chloride Level 109 Carbon Dioxide 24 Level Anion Gap 8 Blood Urea 4 L Nitrogen Creatinine 0.54 Est Glomerular > 60 Filtrat Rate mL/min Glucose Level 147 # Calcium Level 8.4 Lab Scanned BLOOD TRANSFUSIO Report N Test 03/27/19 08:52 03/27/19 12:45 Bedside Glucose 152 179 Exam/Review of Systems Exam Vitals Vital Signs Date Temp Pulse Resp B/P (MAP) Pulse Ox O2 O2 Flow FiO2 Time Delivery Rate 03/27/19 98.7 81 18 137/73 99 08:07 (94) 03/25/19 Simple 8.0 18:55 Mask Intake and Output 03/26/19 03/26/19 03/27/19 1515:00 23:00 07:00 IntakeIntake Total 970 ml 950 ml 700 ml OutputOutput Total 2500 ml 4200 ml 600 ml BalanceBalance -1530 ml -3250 ml 100 ml Results Results 24hrs Laboratory Tests Test 03/26/19 17:54 03/26/19 21:05 03/27/19 04:40 03/27/19 07:03 Bedside Glucose 241 H 125 White Blood Count 7.7 Red Blood Count 4.93 Hemoglobin 9.3 #L Hematocrit 32.6 #L Mean Corpuscular 66.1 L Volume Mean Corpuscular 18.9 L Hemoglobin Mean Corpuscular 28.5 L Hemoglobin Concen t Red Cell 26.0 #H Distribution Width Platelet Count 258 Mean Platelet Volume Immature 0.300 Granulocytes % Neutrophils % 71.1 Lymphocytes % 17.6 Monocytes % 8.7 Eosinophils % 1.8 Basophils % 0.5 Nucleated Red 0.0 Blood Cells % Immature 0.020 Granulocytes # Neutrophils # 5.4 Lymphocytes # 1.4 Monocytes # 0.7 Eosinophils # 0.1 Basophils # 0.0 Nucleated Red 0.0 Blood Cells # Sodium Level 141 Potassium Level 3.3 L Chloride Level 109 Carbon Dioxide 24 Level Anion Gap 8 Blood Urea 4 L Nitrogen Creatinine 0.54 Est Glomerular > 60 Filtrat Rate mL/min Glucose Level 147 # Calcium Level 8.4 Lab Scanned BLOOD TRANSFUSIO Report N Test 03/27/19 08:52 03/27/19 12:45 Bedside Glucose 152 179 Medications Medication Current Medications Miscellaneous Information (* Miscellaneous Pharmacy Order) HYPOGLYCEMIA TREATMENT HYPOGLYCEM PROTOCOL PRN XX .HYPOGLYCEMIA PROTOCOL; Start 03/24/19 at 17:00 IV Flush (NS 3 ml) 3 ml PER PROTOCOL IV ; Start 03/24/19 at 17:00 Ondansetron HCl (Zofran Inj) 4 mg Q6H PRN IV NAUSEA/VOMITING Last administered on 03/25/19at 00:38; Admin Dose 4 MG; Start 03/24/19 at 17:00 Acetaminophen (Tylenol Tab) 650 mg Q6H PRN PO .PAIN 1-3 OR TEMP Last administered on 03/26/19at 18:46; Admin Dose 650 MG; Start 03/24/19 at 17:00 Morphine Sulfate (morphine) 2 mg Q4H PRN IV .SEVERE PAIN 7-10 Last administered on 03/25/19at 00:38; Admin Dose 2 MG; Start 03/24/19 at 17:00 Docusate Sodium (Colace) 100 mg Q12H PRN PO .CONSTIPATION; Start 03/24/19 at 17:00 Magnesium Hydroxide (Milk Of Mag) 30 ml DAILY PRN PO .CONSTIPATION; Start 03/24/19 at 17:00 Lorazepam (Ativan) 0.5 mg Q6H PRN IV ANXIETY; Start 03/24/19 at 17:00 Albuterol/ Ipratropium (Duoneb) 3 ml Q4H RESP THERAPY PRN HHN SHORTNESS OF BREATH; Start 03/24/19 at 17:00 Piperacillin Sod/ Tazobactam Sod 100 ml @ 200 mls/hr Q6 IVPB Last administered on 03/27/19at 05:23; Admin Dose 200 MLS/HR; Start 03/24/19 at 18:00 Hydralazine HCl (Apresoline) 10 mg Q6H PRN IV ELEVATED BLOOD PRESSURE; Start 03/24/19 at 17:00 Nitroglycerin (Nitroglycerin (Sl Tab) 0.4 Mg) 1 tab Q5M PRN SL ANGINA; Start 03/24/19 at 17:00 Pantoprazole (Protonix Tab) 40 mg DAILY@06 PO Last administered on 03/27/19at 05:21; Admin Dose 40 MG; Start 03/25/19 at 06:00 Lactated Ringer's 1,000 ml @ 125 mls/hr Q8H IV Last administered on 03/27/19at 05:22; Admin Dose 125 MLS/HR; Start 03/25/19 at 03:52 Diagnostic Test (Pha) (Accu-Chek) 1 ea 02 XX ; Start 03/26/19 at 02:00 Insulin Aspart (Novolog Insulin Pen) NOVOLOG *MODERATE* ALGORITHM WITH MEALS BEDTIME SC Last administered on 03/27/19at 13:07; Admin Dose 2 UNIT; Start 03/25/19 at 11:30 Miscellaneous Information 1 ea NOTE XX ; Start 03/25/19 at 10:00 Glucose (Glutose) 15 gm Q15M PRN PO DECREASED GLUCOSE; Start 03/25/19 at 10:00 Glucose (Glutose) 22.5 gm Q15M PRN PO DECREASED GLUCOSE; Start 03/25/19 at 10:00 Dextrose (D50w Syringe) 25 ml Q15M PRN IV DECREASED GLUCOSE; Start 03/25/19 at 10:00 Dextrose (D50w Syringe) 50 ml Q15M PRN IV DECREASED GLUCOSE; Start 03/25/19 at 10:00 Glucagon (Glucagen) 1 mg Q15M PRN IM DECREASED GLUCOSE; Start 03/25/19 at 10:00 Glucose (Glutose) 15 gm Q15M PRN BUCCAL DECREASED GLUCOSE; Start 03/25/19 at 10:00 Ibuprofen (Motrin) 600 mg Q8H PRN PO MILD PAIN(1-3)OR ELEVATED TEMP Last administered on 03/27/19 09:06; Admin Dose 600 MG; Start 03/25/19 at 10:00 Acetaminophen/ Hydrocodone Bitart ([place] (5/325)) 1 tab Q4H PRN PO PAIN LEVEL 6-10 Last administered on 03/27/19 05:22; Admin Dose 1 TAB; Start 03/25/19 at 10:00 Insulin Glargine (Lantus) 19 units DAILY@0800 SC Last administered on 03/27/19at 08:56; Admin Dose 19 UNITS; Start 03/27/19 at 08:00 Insulin Aspart (Novolog Insulin Pen) 6 unit WITH MEALS SC Last administered on 03/27/19at 13:07; Admin Dose 6 UNIT; Start 03/26/19 at 11:40 Simethicone (Mylicon) 80 mg Q6H PRN PO DISTENSION/GAS/BLOATING Last administe red on 03/26/19at 17:58; Admin Dose 80 MG; Start 03/26/19 at 17:30 JOE VALENCIA Mar 27, 2019 15:12
[2019-03-27 15:55] VITALS: BP 127/73; RESP 18
[2019-03-27 19:45] VITALS: BP 135/65; PULSE 87; RESP 18
[2019-03-28] MEDS: HYDROCODONE/APAP (5/325) TAB PO PRN ×4 (00:03→20:49)
[2019-03-28] MEDS: PIPER-TAZO 3.375 GM IV (PMX) 100 ML IVPB SCH ×3 (00:03→11:47)
[2019-03-28] MEDS: ACCU-CHEK XX SCH (01:25)
[2019-03-28 02:30] VITALS: BP 129/92; PULSE 85; RESP 18
[2019-03-28] MEDS: PANTOPRAZOLE (EC) 40 MG TAB PO SCH (05:07)
[2019-03-28] MEDS: INSULIN ASPART [NOVOLOG] 3 ML PEN SC SCH ×7 (07:50→20:50)
[2019-03-28 07:51] VITALS: BP 126/70; PULSE 84; RESP 16
[2019-03-28] MEDS: INSULIN GLARGINE [LANTus] (100 UNITS/ML) SYG SC SCH (08:46)
--- NOTE | 2019-03-28 12:42 | PN ---
Date/Time of Note Date/Time of Note DATE: 03/28/19 TIME: 12:39 Assessment/Plan VTE Prophylaxis Risk score (from Nsg)>0 risk: 3 SCD applied (from Nsg): Yes Pharmacological prophylaxis: other Lines/Catheters IV Catheter Type (from Nrsg): Saline Lock Urinary Cath still in place: No Assessment/Plan Hospital Course S: Apparently had some mild vaginal bleeding, possibly related to her. Ye sterday, hemoglobin has been stable. Tolerating diet. No fevers overnight. O: VS - see below PHYSICAL EXAMINATION: GENERAL: lying in bed, NAD HEENT: Pupils equal, round, and reactive to light. Extraocular muscles intact. NECK: Supple, no thyromegaly. LUNGS: Clear to auscultation bilaterally. CARDIOVASCULAR: S1, S2 heard. No rubs or gallops. ABDOMEN: Less tenderness to palpation, left lower quadrant area. Otherwise, no rebound or guarding. MUSCULOSKELETAL: No lower extremity edema bilaterally. NEUROLOGIC: No focal deficits. MRI pelvis: IMPRESSION: 1. Left adnexal torsion with a pathologic lead point. 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 Urgent gynecology consultation is advised. 2. Abnormal cystic enlargement of the right ovary is concerning for a s ynchronous cystic neoplasm in the right ovary. 3. Small volume free pelvic fluid. 4. 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 Recommend dedicated MRI of the left hip after the acute situation subsides. ASSESSMENT AND PLAN: 33-year-old female coming in with lower abdominal pain/pelvic mass as well diabetic ketoacidosis. 1. Elevated blood sugars/DKA: Patient presented with mild diabetic ketoacidosis. Her A1c = 11.5. Sugars have been improved for the last 2 days. -For now continue ISS, Lantus and aspart with meals, IV fluids -Awaiting natural resources extension educator to come see patient likely in 24 hours-patient will need supplies including glucometer, etc. Also needs teaching for likely Lantus to use at home. Consider discharging home with p.o. diabetic medication as well such as glyburide or metformin twice daily when patient is ready for discharge. 2. Abdominal pain: pelvic MRI indicated ovarian torsion, and as mentioned above patient underwent emergent laparoscopic surgery by INDUSTRIAL GAS FITTER team to treat this postop day # 3. Hemoglobin today improved the last couple of days after PRBC transfusion given then. -Monitor, follow-up postop recommendations from INDUSTRIAL GAS FITTER team. - Continue IV fluids and pain control medications as well. 3. Gastrointestinal prophylaxis with PPI. 4. Deep venous thrombosis prophylaxis-SCDs Dispo: Likely home in 24 hours once cleared by platform consultant teams, hemoglobin remained stable, and after natural resources extension educator has seen patient. Again patient likely will need a regimen of Lantus at current doses along with either p.o. diabetic medication such as glyburide or Metformin or other twice daily. Result Diagram: 03/28/19 0433 03/28/19 0433 Results 24hrs Laboratory Tests Test 03/27/19 12:45 03/27/19 18:12 03/27/19 20:57 03/28/19 04:33 Bedside Glucose 179 137 122 White Blood Count 7.6 Red Blood Count 4.91 Hemoglobin 9.2 L Hematocrit 32.3 L Mean Corpuscular 65.8 L Volume Mean Corpuscular 18.7 L Hemoglobin Mean Corpuscular 28.5 L Hemoglobin Concent Red Cell 26.2 H Distribution Width Platelet Count 264 Mean Platelet Volume Immature 0.300 Granulocytes % Neutrophils % 69.6 Lymphocytes % 20.5 Monocytes % 7.4 Eosinophils % 1.9 Basophils % 0.3 Nucleated Red Blood 0.0 Cells % Immature 0.020 Granulocytes # Neutrophils # 5.3 Lymphocytes # 1.6 Monocytes # 0.6 Eosinophils # 0.1 Basophils # 0.0 Nucleated Red Blood 0.0 Cells # Sodium Level 144 Potassium Level 3.5 Chloride Level 107 Carbon Dioxide Level 25 Anion Gap 12 Blood Urea Nitrogen 6 L Creatinine 0.58 Est Glomerular > 60 Filtrat Rate mL/min Glucose Level 122 Calcium Level 8.9 Test 03/28/19 08:42 Bedside Glucose 126 Exam/Review of Systems Exam Vitals Vital Signs Date Temp Pulse Resp B/P (MAP) Pulse Ox O2 O2 Flow FiO2 Time Delivery Rate 03/28/19 97.9 84 16 126/70 98 07:51 (88) 03/25/19 Simple 8.0 18:55 Mask Intake and Output 03/27/19 03/27/19 03/28/19 1515:00 23:00 07:00 IntakeIntake Total 240 ml 475 ml 825 ml BalanceBalance 240 ml 475 ml 825 ml Results Results 24hrs Laboratory Tests Test 03/27/19 12:45 03/27/19 18:12 03/27/19 20:57 03/28/19 04:33 Bedside Glucose 179 137 122 White Blood Count 7.6 Red Blood Count 4.91 Hemoglobin 9.2 L Hematocrit 32.3 L Mean Corpuscular 65.8 L Volume Mean Corpuscular 18.7 L Hemoglobin Mean Corpuscular 28.5 L Hemoglobin Concent Red Cell 26.2 H Distribution Width Platelet Count 264 Mean Platelet Volume Immature 0.300 Granulocytes % Neutrophils % 69.6 Lymphocytes % 20.5 Monocytes % 7.4 Eosinophils % 1.9 Basophils % 0.3 Nucleated Red Blood 0.0 Cells % Immature 0.020 Granulocytes # Neutrophils # 5.3 Lymphocytes # 1.6 Monocytes # 0.6 Eosinophils # 0.1 Basophils # 0.0 Nucleated Red Blood 0.0 Cells # Sodium Level 144 Potassium Level 3.5 Chloride Level 107 Carbon Dioxide Level 25 Anion Gap 12 Blood Urea Nitrogen 6 L Creatinine 0.58 Est Glomerular > 60 Filtrat Rate mL/min Glucose Level 122 Calcium Level 8.9 Test 03/28/19 08:42 Bedside Glucose 126 Medications Medication Current Medications Miscellaneous Information (* Miscellaneous Pharmacy Order) HYPOGLYCEMIA TREATMENT HYPOGLYCEM PROTOCOL PRN XX .HYPOGLYCEMIA PROTOCOL; Start 03/24/19 at 17:00 IV Flush (NS 3 ml) 3 ml PER PROTOCOL IV ; Start 03/24/19 at 17:00 Ondansetron HCl (Zofran Inj) 4 mg Q6H PRN IV NAUSEA/VOMITING Last administered on 03/25/19at 00:38; Admin Dose 4 MG; Start 03/24/19 at 17:00 Acetaminophen (Tylenol Tab) 650 mg Q6H PRN PO .PAIN 1-3 OR TEMP Last administered on 03/26/19at 18:46; Admin Dose 650 MG; Start 03/24/19 at 17:00 Morphine Sulfate (morphine) 2 mg Q4H PRN IV .SEVERE PAIN 7-10 Last administered on 03/25/19at 00:38; Admin Dose 2 MG; Start 03/24/19 at 17:00 Docusate Sodium (Colace) 100 mg Q12H PRN PO .CONSTIPATION; Start 03/24/19 at 17:00 Magnesium Hydroxide (Milk Of Mag) 30 ml DAILY PRN PO .CONSTIPATION; Start 03/24/19 at 17:00 Lorazepam (Ativan) 0.5 mg Q6H PRN IV ANXIETY; Start 03/24/19 at 17:00 Albuterol/ Ipratropium (Duoneb) 3 ml Q4H RESP THERAPY PRN HHN SHORTNESS OF BREATH; Start 03/24/19 at 17:00 Hydralazine HCl (Apresoline) 10 mg Q6H PRN IV ELEVATED BLOOD PRESSURE; Start 03/24/19 at 17:00 Nitroglycerin (Nitroglycerin (Sl Tab) 0.4 Mg) 1 tab Q5M PRN SL ANGINA; Start 03/24/19 at 17:00 Pantoprazole (Protonix Tab) 40 mg DAILY@06 PO Last administered on 03/28/19at 05:07; Admin Dose 40 MG; Start 03/25/19 at 06:00 Diagnostic Test (Pha) (Accu-Chek) 1 ea 02 XX ; Start 03/26/19 at 02:00 Insulin Aspart (Novolog Insulin Pen) NOVOLOG *MODERATE* ALGORITHM WITH MEALS BEDTIME SC Last administered on 03/27/19at 13:07; Admin Dose 2 UNIT; Start 03/25/19 at 11:30 Miscellaneous Information 1 ea NOTE XX ; Start 03/25/19 at 10:00 Glucose (Glutose) 15 gm Q15M PRN PO DECREASED GLUCOSE; Start 03/25/19 at 10:00 Glucose (Glutose) 22.5 gm Q15M PRN PO DECREASED GLUCOSE; Start 03/25/19 at 10:00 Dextrose (D50w Syringe) 25 ml Q15M PRN IV DECREASED GLUCOSE; Start 03/25/19 at 10:00 Dextrose (D50w Syringe) 50 ml Q15M PRN IV DECREASED GLUCOSE; Start 03/25/19 at 10:00 Glucagon (Glucagen) 1 mg Q15M PRN IM DECREASED GLUCOSE; Start 03/25/19 at 10:00 Glucose (Glutose) 15 gm Q15M PRN BUCCAL DECREASED GLUCOSE; Start 03/25/19 at 10:00 Ibuprofen (Motrin) 600 mg Q8H PRN PO MILD PAIN(1-3)OR ELEVATED TEMP Last ad ministered on 03/27/19at 09:06; Admin Dose 600 MG; Start 03/25/19 at 10:00 Acetaminophen/ Hydrocodone Bitart ([place] (5/325)) 1 tab Q4H PRN PO PAIN LEVEL 6-10 Last administered on 03/28/19at 11:47; Admin Dose 1 TAB; Start 03/25/19 at 10:00 Insulin Glargine (Lantus) 19 units DAILY@0800 SC Last administered on 03/28/19at 08:46; Admin Dose 19 UNITS; Start 03/27/19 at 08:00 Insulin Aspart (Novolog Insulin Pen) 6 unit WITH MEALS SC Last administered on 03/28/19at 08:46; Admin Dose 6 UNIT; Start 03/26/19 at 11:40 Simethicone (Mylicon) 80 mg Q6H PRN PO DISTENSION/GAS/BLOATING Last administered on 03/26/19at 17:58; Admin Dose 80 MG; Start 03/26/19 at 17:30 Miscellaneous Information (*Order Clarification Bulletin) MEDICATION REQUIRES CLARIFICATI... Q8H XX ; Start 03/28/19 at 04:00 JOE VALENCIA Mar 28, 2019 12:42
--- NOTE | 2019-03-28 14:47 | QN ---
Documentation Comment POD #3 No complaints No surgical issues at this time VS stable Gen NAD Abd soft NT ND Incisions intact -->It seems that medicine will clear her for discharge tomorrow --->possible discharge tomorrow -->Questions answered BANG HERNANDEZ M.D. Mar 28, 2019 14:47
[2019-03-28 15:12] VITALS: BP 122/60; PULSE 84; RESP 16
[2019-03-28 19:28] VITALS: BP 126/72; PULSE 90; RESP 18
[2019-03-29 01:48] VITALS: BP 138/67; PULSE 87; RESP 18
[2019-03-29] MEDS: ACCU-CHEK XX SCH (02:00)
[2019-03-29] MEDS: PANTOPRAZOLE (EC) 40 MG TAB PO SCH (05:13)
[2019-03-29] MEDS ORDERED: LEVOFLOXACIN 750 MG TABLET PO SCH (06:00)
[2019-03-29 07:46] VITALS: BP 131/62; PULSE 82; RESP 19
[2019-03-29] MEDS: INSULIN ASPART [NOVOLOG] 3 ML PEN SC SCH ×4 (09:02→13:12)
[2019-03-29] MEDS: INSULIN GLARGINE [LANTus] (100 UNITS/ML) SYG SC SCH (09:03)
--- NOTE | 2019-03-29 11:24 | DS ---
Date/Time of Note Date/Time of Note DATE: 03/29/19 TIME: 11:24 Discharge Summary Admission/Discharge Info Admit Date/Time Mar 24, 2019 at 17:13 Discharge Date/Time March 29, 2019 Discharge Diagnosis Status post exploratory laparotomy with left salpingo-oophorectomy for left ovarian torsion Right polycystic ovary and pelvic adhesions Patient Condition: Good Consults Gynecology Procedures Please refer to the operative note for details Hx of Present Illness Patient was admitted on March 24, 2019 with the following diagnoses 1. Abdominal pain 2. Left ovarian cystic mass with torsion 3. Enlarged right ovary 4. DKA She underwent the following surgery by Dr. Faith and March 25, 2019; Operation/Procedure Performed 1. Diagnostic laparoscopy 2. Attempt laparoscopic left oophorectomy, converted to open laparotomy due to malfunction of the energy device. Several energy device used, are not functioning 3. Open laparotomy 4. Left oophorectomy with detorsion of the left tube 5 biopsy of the right ovary. With drainage of the cyst. 6. Pelvic washing Postoperative diagnoses for the followings; Left enlarged cystic ovarian mass with torsion, size about 7 x 5 cm The whole left ovary was enlarged, engorged, torsed. Hemorrhagic and dark, without good viable tissue Right ovary with evidence of polycystic with multiple small cysts in the periphery of the ovary as well as 2 cm simple cyst as well as some calcified area> undersurface Status post biopsy of the right ovary Right tube appears normal Pelvic adhesions with adhesion of the omentum to the anterior cul-de-sac Hospital Course Patient initially admitted to ICU for DKA after surgery transferred to [facility] Patient received 2 units of packed RBCs postoperatively Patient remained stable and afebrile She is ambulating, voiding without any difficulties, tolerating regular diet and passing gas/positive bowel movement Patient's diabetes status improving and currently managed by the hospitalist Patient will receive prescription for diabetes management by the hospitalist She is to be cleared by field reviewer prior to discharge today Home Meds No Active Prescriptions or Reported Meds Follow-up Plan Patient instructed to follow-up with GET[facility] OPERATOR clinic in 1 week for incision check Primary Care Provider Care Physician No Primary Time spent on discharge: > 30 minutes Pending Labs Laboratory Tests Test 03/28/19 12:40 03/28/19 17:52 03/28/19 20:47 03/29/19 04:26 Bedside 154 114 131 Glucose mg/dL (70-220) mg/dL (70-220) mg/dL (70-220) White Blood 6.7 Count 10^3/ul (4.8-1 0.8) Red Blood 5.03 Count 10^6/ul (4.20- 5.40) Hemoglobin 9.4 g/dl (12.0-16. 0) Hematocrit 33.4 % (37.0-47.0) Mean 66.4 Corpuscular fl (82.0-101.0 Volume ) Mean 18.7 Corpuscular pg (29.0-33.0) Hemoglobin Mean 28.1 Corpuscular g/dl (32.0-37. Hemoglobin Conc 0) ent Red Cell 26.1 Distribution % (11.5-14.5) Width Platelet Count 338 10^3/UL (140-4 15) Mean Platelet fl (7.4-10.4) Volume Immature 0.400 Granulocytes % % (0.001-0.429 ) Neutrophils % 61.4 % (39.0-77.0) Lymphocytes % 26.0 % (15.0-51.0) Monocytes % 9.0 % (0.0-11.0) Eosinophils % 2.8 % (0.0-7.0) Basophils % 0.4 % (0.0-2.0) Nucleated Red 0.0 Blood Cells % /100WBC (0.0-0 .0) Immature 0.030 Granulocytes # 10^3/ul (0.0-0 .031) Neutrophils # 4.1 10^3/ul (1.6-7 .5) Lymphocytes # 1.7 10^3/ul (0.8-2 .9) Monocytes # 0.6 10^3/ul (0.3-0 .9) Eosinophils # 0.2 10^3/ul (0.0-0 .5) Basophils # 0.0 10^3/ul (0.0-0 .1) Nucleated Red 0.0 Blood Cells # 10^3/ul (0.0-0 .0) Sodium Level 141 mmol/L (135-14 4) Potassium 4.1 Level mmol/L (3.5-5. 1) Chloride Level 106 mmol/L (97-110 ) Carbon Dioxide 26 Level mmol/L (21-31) Anion Gap 9 (5-13) Blood Urea 9 mg/dl (7-20) Nitrogen Creatinine 0.61 mg/dl (0.44-1. 00) Est Glomerular > 60 Filtrat mL/min (>60) Rate mL/min Glucose Level 130 mg/dl (70-220) Calcium Level 9.2 mg/dl (8.4-10. 2) Test 03/29/19 08:56 Bedside 127 Glucose mg/dL (70-220) SULAIMAN ALDANA MD Mar 29, 2019 11:24
[2019-03-29 15:08] VITALS: BP 141/58; PULSE 67
[2019-03-29] MEDS ORDERED: METF-849 PO (15:22)
[2019-03-29] MEDS ORDERED: LANT3I SC (15:22)
--- NOTE | 2019-03-29 15:26 | PDOCDIS ---
Discharge Instructions DIAGNOSIS Discharge Diagnosis Status post exploratory laparotomy with left salpingo-oophorectomy for left ovarian torsion Right polycystic ovary and pelvic adhesions Newly diagnosed insulin-dependent diabetes mellitus CONDITION [address] Patient Condition: [address] [place] HOME CARE INSTRUCTIONS: [id number] Diet Instructions: [address] Reduced Calorie [id number] Special Diet: [id number] Carb Controlled, Diabetic Diet (see E-sheets on Diabetic diet given) ACTIVITY: [id number] Activity Restrictions: [address] Slowly Increase Activity Rest between Activity Avoid heavy lifting [address] Bathing Restrictions: [address] Shower FOLLOW UP/APPOINTMENTS Follow-up Plan 1. follow-up with [facility] WAREHOUSING MANAGER clinic in 1 week for incision check 2. Diabetes is a lifelong disease which, if uncontrolled, can cause gradual damage to the eyes, kidneys, nerves; and increase your risk of heart attack and stroke. 3. However if you lose weight and keep your blood sugar under control the effects of the disease are minimal. 4. Take metformin twice daily as prescribed. The most common side effect is abdominal bloating and diarrhea. If you experience this try taking it only once a day. If symptoms persist you can stop. 5. Inject insulin glargine (Lantus or Basaglar) as prescribed. Use your glucometer to check your blood sugar regularly. It should remain between 70-160. It may temporarily be higher than this right after a large meal. 6. Go through your insurance to find a primary care doctor, and make an appointment in 1-2 weeks. REFERRALS [address] Agency Name and Phone [address] [facility]: for Gynecology follow up postop JULIO CESAR MENDENHALL MD Mar 29, 2019 15:26
--- NOTE | 2019-03-29 16:26 | DS ---
Date/Time of Note Date/Time of Note DATE: 03/29/19 TIME: 16:19 Discharge Summary Admission/Discharge Info Admit Date/Time Mar 24, 2019 at 17:13 Discharge Date/Time Mar 29, 2019 Discharge Diagnosis Status post exploratory laparotomy with left salpingo-oophorectomy for left ovarian torsion Right polycystic ovary and pelvic adhesions Newly diagnosed insulin-dependent diabetes mellitus Patient Condition: Good Consults Dr. Faiht, gynecology. Procedures 03/25/2019: 1. Diagnostic laparoscopy 2. Attempt laparoscopic left oophorectomy, converted to open laparotomy due to malfunction of the energy device. Several energy device used, are not functioning 3. Open laparotomy 4. Left oophorectomy with detorsion of the left tube 5 biopsy of the right ovary. With drainage of the cyst. 6. Pelvic washing Hx of Present Illness IDENTIFICATION: This is a 33-year-old female. CHIEF COMPLAINT: Abdominal pain and vomiting. HISTORY OF PRESENT ILLNESS: A 33-year-old female with apparently no significant past medical history who started having left lower quadrant pain. She said the symptoms began early this morning. She described a 10/10 pain, sort of a twisting sensation. Apparently, she has never had this pain before. The pain apparently radiated to her lower back. She also had some nausea and vomiting symptoms, nonbilious, nonbloody, and some mild loose stools. She denied any chest pain, shortness of breath, no fevers or chills. No dysuria. When she came in today, she was found with elevated blood sugars in the 300 range and her anion gap was slightly elevated with signs of mild DKA and she is presently on DKA protocol, getting IV fluids and waiting for IV insulin. However, she also had a CT scan of abdomen and pelvis performed today in the ER that showed the right intraperitoneal pelvis partially indelving the uterus, and crossing the midline to the left posterior to the uterus is a complex large cystic mass measuring 11 x 7 x 7 cm containing multiple septations, cannot rule out cystic ovarian neoplasm versus a pseudomyxoma peritonei versus cystic lymphangioma t ubo-ovarian abscess, less likely due to lack of information. There was a pelvic ultrasound performed that showed complex multicystic right adnexal mass without visible normal-appearing right ovary. A call has been made out for the [facility] doctor to come evaluate the patient. The patient denies any prior history of any diabetes. Per records, her last menstrual period was 02/26/2019. The patient stated that she took 2 Tylenol and ibuprofen at home which provided. The patient stated that she took 2 Tylenol and ibuprofen at home, which provided only minimal relief from symptoms. She also has received some opioid medication in the ER today, which helped relieved her symptoms. PAST MEDICAL HISTORY: As stated above. ALLERGIES: NO KNOWN DRUG ALLERGIES. HOME MEDICATIONS: None. PAST SURGICAL HISTORY: None. SOCIAL HISTORY: Negative for smoking or drinking or IV drug abuse. FAMILY HISTORY: Mother has hypertension. Hospital Course Early the morning after admission, the patient was taken to OR by gynecology for ovarian torsion. See full operative report. The lap procedure was convered to open laparotomy due to device malfunction. The left ovary had a large complex cyst and the ovaraian tissue was ischemic and gangrenous. A L oophorectomy was done. A biopsy was done of the R ovary and also a pelvic washing for cytology was done. Postoperatively, the patient was hyperglycemic to the 300s with newly diagnosed diabetes. HgbA1C was 11.8. Blood sugar controlled with basal and bolus insulin; she will be discharged on glargine 20 and metformin 500 BID. The surgical pathology of the L cyst, the R ovarian biopsy, and pelvic washing yielded only benign cells. The patient was reassured and discharged with plan to followup with gynecology to evaluate incision site. Home Meds Active Scripts Metformin* (Glucophage*) 500 Mg Tab, 500 MG PO WITH BREAKFAST LUNCH, #60 TAB Prov:JULIO CESAR MENDENHALL MD 03/29/19 Insulin Glargine* (Lantus*) 100 Unit/Ml Soln, 20 UNIT SC QHS, #1 VIAL Prov:JULIO CESAR MENDENHALL MD 03/29/19 Follow-up Plan 1. follow-up with [facility] in 1 week for incision check 2. Diabetes is a lifelong disease which, if uncontrolled, can cause gradual damage to the eyes, kidneys, nerves; and increase your risk of heart attack and stroke. 3. However if you lose weight and keep your blood sugar under control the ef fects of the disease are minimal. 4. Take metformin twice daily as prescribed. The most common side effect is abdominal bloating and diarrhea. If you experience this try taking it only once a day. If symptoms persist you can stop. 5. Inject insulin glargine (Lantus or Basaglar) as prescribed. Use your glucometer to check your blood sugar regularly. It should remain between 70-160. It may temporarily be higher than this right after a large meal. 6. Go through your insurance to find a primary care doctor, and make an appointment in 1-2 weeks. Primary Care Provider Care Physician No Primary Time spent on discharge: > 30 minutes Pending Labs Laboratory Tests Test 03/28/19 17:52 03/28/19 20:47 03/29/19 04:26 03/29/19 08:56 Bedside 114 131 127 Glucose mg/dL (70-220) mg/dL (70-220) mg/dL (70-220) White Blood 6.7 Count 10^3/ul (4.8-1 0.8) Red Blood 5.03 Count 10^6/ul (4.20- 5.40) Hemoglobin 9.4 g/dl (12.0-16. 0) Hematocrit 33.4 % (37.0-47.0) Mean 66.4 Corpuscular fl (82.0-101.0 Volume ) Mean 18.7 Corpuscular pg (29.0-33.0) Hemoglobin Mean 28.1 Corpuscular g/dl (32.0-37. Hemoglobin Conc 0) ent Red Cell 26.1 Distribution % (11.5-14.5) Width Platelet Count 338 10^3/UL (140-4 15) Mean Platelet fl (7.4-10.4) Volume Immature 0.400 Granulocytes % % (0.001-0.429 ) Neutrophils % 61.4 % (39.0-77.0) Lymphocytes % 26.0 % (15.0-51.0) Monocytes % 9.0 % (0.0-11.0) Eosinophils % 2.8 % (0.0-7.0) Basophils % 0.4 % (0.0-2.0) Nucleated Red 0.0 Blood Cells % /100WBC (0.0-0 .0) Immature 0.030 Granulocytes # 10^3/ul (0.0-0 .031) Neutrophils # 4.1 10^3/ul (1.6-7 .5) Lymphocytes # 1.7 10^3/ul (0.8-2 .9) Monocytes # 0.6 10^3/ul (0.3-0 .9) Eosinophils # 0.2 10^3/ul (0.0-0 .5) Basophils # 0.0 10^3/ul (0.0-0 .1) Nucleated Red 0.0 Blood Cells # 10^3/ul (0.0-0 .0) Sodium Level 141 mmol/L (135-14 4) Potassium 4.1 Level mmol/L (3.5-5. 1) Chloride Level 106 mmol/L (97-110 ) Carbon Dioxide 26 Level mmol/L (21-31) Anion Gap 9 (5-13) Blood Urea 9 mg/dl (7-20) Nitrogen Creatinine 0.61 mg/dl (0.44-1. 00) Est Glomerular > 60 Filtrat mL/min (>60) Rate mL/min Glucose Level 130 mg/dl (70-220) Calcium Level 9.2 mg/dl (8.4-10. 2) Test 03/29/19 13:09 Bedside 186 Glucose mg/dL (70-220) JULIO CESAR MENDENHALL MD Mar 29, 2019 16:26
== END 2019-03-29 16:38 | disposition home or self-care (01) | DRG 742 ==
LOC: FTE 13:30 → ICU 17:13 → MS1 03-25 18:35
PROVIDERS: ADMIT Hospitalist; ATTEND Internal Medicine
PROC: 0UB20ZZ Excision of Bilateral Ovaries, Open Approach (ICD-10-PCS; 2019-03-25)
PROC: 0JNC0ZZ Release Pelvic Region Subcutaneous Tissue and Fascia, Open Approach (ICD-10-PCS; 2019-03-25)
PROC: 0WJJ0ZZ Inspection of Pelvic Cavity, Open Approach (ICD-10-PCS; principal; 2019-03-25 05:00)
PROC: 30233N1 Transfusion of Nonautologous Red Blood Cells into Peripheral Vein, Percutaneous Approach (ICD-10-PCS; 2019-03-26)
DX: N83.512 Torsion of left ovary and ovarian pedicle (principal); E11.10 Type 2 diabetes mellitus with ketoacidosis without coma; E66.9 Obesity, unspecified; Z68.34 Body mass index [BMI] 34.0-34.9, adult; N73.6 Female pelvic peritoneal adhesions (postinfective); N83.201 Unspecified ovarian cyst, right side; Z79.4 Long term (current) use of insulin; D64.9 Anemia, unspecified; R11.2 Nausea with vomiting, unspecified
CPT/HCPCS: 36415; 36430; 71045; 72196; 74176; 76856; 80048; 80053; 80061; 81001; 81003; 81025; 82803; 82962; 83036; 83540; 83690; 83735; 84100; 84439; 84443; 84703; 85014; 85018; 85025; 85610; 85730; 86301; 86304; 86850; 86900; 86901; 86920; 87081; 87086; 88104; 88305; J0690; J1170; J1644; J1815; J1885; J2250; J2270; J2274; J2405; J2543; J2710; J2765; J2795; J3010; J3475; J3480; J7030; J7040; J7050; J7120; P9016